=== PATIENT | female | born 1995 | race Caucasian/White ===

== ENCOUNTER → 2017-07-28 | Outpatient (CLI) | payer SELFPAY ==
--- NOTE | 2017-07-28 15:56 | RAD ---
Exam performed: 3 views right knee. Clinical indication: Right knee pain for one week, no recent injury Date of Service: 07/28/17 Comparison:None available Findings: AP, oblique and lateral radiographs of the knee reveal the osseous structures to be intact and well aligned. The joint space is well-preserved. The articular margins are smooth. Evidence of calcific loose body or joint effusion is absent. Impression: Radiographically normal knee.
== END | disposition home or self-care (01) ==
LOC: DXRADRC 15:10
PROVIDERS: ATTEND Physician Assistant Medical
DX: M25.561 Pain in right knee (principal)
CPT/HCPCS: 73562

== ENCOUNTER 2017-11-29 21:03 | Emergency (ER) | payer OTHER ==
[~2017-11-29] VITALS: Ht 160 cm; Wt 79.4 kg
[2017-11-29] MEDS ORDERED: KETOROLAC 60 MG/2 ML VIAL. IM ONE (21:30)
[2017-11-29] MEDS ORDERED: HYDROmorphone PF 1 MG/ML DISP.SYRIN IM ONE ×2 (21:30→23:00)
--- NOTE | 2017-11-29 21:32 | PHYS DOC ---
Past History Past Medical History: No Pertinent History Past Surgical History: Tonsillectomy Additional Past Surgical Histo: left wrist surgery Smoking: Non-smoker Alcohol Use: Occasionally Drug Use: None Adult General Chief Complaint Chief Complaint: BACK INJURY HPI HPI This patient is an otherwise healthy 22-year-old female who was bowling tonight with her family and she dropped her body and a possible awkward position causing some discomfort in her mid and lower back. She denies any bowel or bladder incontinence, denies any recent URI symptoms, denies any recent UTI symptoms, denies any nausea, vomiting, diarrhea, night sweats or weight loss that's not been intentional. She denies any direct trauma to her back prior history of the same. She did mention she had possibly UTI symptoms for 5 days ago the dose of symptoms have told. Her pain is 8 of 10 is worse with range of motion and movement and direct pressure over the back. She denies any numbness to her lower legs or weakness in her legs. She is not taking anything for her symptoms as she came here directly from the [facility] she normal intervals once weekly family and a noncompressible Review of Systems Review of Systems Constitutional: Denies fever or chills [] Eyes: Denies change in visual acuity, redness, or eye pain [] HENT: Denies nasal congestion or sore throat [] Respiratory: Denies cough or shortness of breath [] Cardiovascular: No additional information not addressed in HPI [] GI: Denies abdominal pain, nausea, vomiting, bloody stools or diarrhea [] : Patient did has some dysuria urgency and frequency for 5 days ago Musculoskeletal: Her main complaint is lower back pain without specific weakness or joint pain Integument: Denies rash or skin lesions [] Neurologic: Denies headache, focal weakness or sensory changes [] Endocrine: Denies polyuria or polydipsia [] All other systems were reviewed and found to be within normal limits, except as documented in this note. Current Medications Current Medications Current Medications Medications (Trade) Dose Ordered Sig/Madelin Start Time Stop Time Status Last Admin Dose Admin Diazepam (Valium) 5 mg 1X ONCE 11/29/17 21:30 11/29/17 21:31 UNV Hydromorphone HCl (Dilaudid) 1 mg 1X ONCE 11/29/17 21:30 11/29/17 21:31 UNV Ketorolac Tromethamine (Toradol) 60 mg 1X ONCE 11/29/17 21:30 11/29/17 21:31 UNV Allergies Allergies Allergies Coded Allergies Type Severity Reaction Last Updated Verified No Known Drug Allergies 11/29/17 No Physical Exam Physical Exam Constitutional: Well developed, well nourished, no acute distress, non-toxic appearance. [] Cardiovascular:Heart rate regular rhythm, no murmur [] Lungs & Thorax: Bilateral breath sounds clear to auscultation [] Skin: Warm, dry, no erythema, no rash. [] Back: She has tenderness to palpation over the rhomboid major and minor as well as erector spinae muscles in the T-spine and L-spine with no midline tenderness to palpation. Extremities: No tenderness, no cyanosis, no clubbing, ROM intact, no edema. [] Neurologic: Alert and oriented X 3, normal motor function, normal sensory function, no focal deficits noted. Patient has no saddle anesthesia normal gait no weakness in her lower legs.[] Psychologic: Affect normal, judgement normal, mood normal. [] EKG EKG [] Radiology/Procedures Radiology/Procedures [] Course & Med Decision Making Course & Med Decision Making Pertinent Labs and Imaging studies reviewed. (See chart for details) []She presents with sudden onset of back pain while bowling with no red flags to include night sweats, weight loss that's been unintentional, bowel or bladder continence, history of IV drug abuse or possible trauma to her back. Patient denies any UTI symptoms at this time Back pain differential CRAFTI Cauda Equina Renal Stone AAA ruptured Fracture Tumor (TB, metastatic disease) Infection UTI, pyelonephritis, epidural abscess. Patient's spine symptoms have stabilized while they have been evaluated in the department and are appropriate for outpatient work up. No evidence of cauda equina, cord compression, infiltrative, or infectious etiology. Patient produced a urine sample about 10 PM urine sample showed signs of considerable contamination with epithelial cells but also has signs of bacteria and white blood cells my concern is given her symptoms if I do not treat this may be a subclinical pyelonephritis which she would potentially get sicker if I do not treat her with empiric infarcts. Time is now 10:45 PM patient feels better although pain is not completely gone she is able to move more on the bed although she still cannot recall comfortable. The pain is not radiating or moving doubt any stone or aneurysm, doubt epidural abscess or other fracture. Patient had muscular skeletal pain on examination is reproduced on exam. No evidence of cauda equina on physical exam. Plan as to treat patient with NSAIDs, narcotics and a muscle relaxant. I will also supply her a course of antibiotics discharge: I've spoken with the patient and/or caregivers. I've explained the patient's condition, diagnosis and treatment plan based on information available to me at this time. I've answered the patient's and/or caregivers questions and addressed any concerns. The patient and/or caregivers have a good understanding the patient's diagnosis, condition and treatment plan as can be expected at this point. Vital signs have been stabilized. The patient's condition is stable for discharge from the emergency department. The patient will pursue further outpatient evaluation with her primary care provider or other designated consulting physician as outlined in the discharge instructions. Patient and/or caregivers are agreeable to this plan of care and follow-up instructions have been explained in detail. The patient and/or caregivers have received these instructions in written format and expressed understanding of these discharge instructions. The patient and her caregivers are aware that if any significant change in condition or worsening of symptoms should prompt him to immediately return to this of the closest emergency department. If an emergent department is not readily available I would encourage him to call 911. [place] Disclaimer Dragon Disclaimer This electronic medical record was generated, in whole or in part, using a voice recognition dictation system. Departure Departure: Disposition: 01 HOME, SELF-CARE Condition: IMPROVED Referrals: SHARI MATTHEW (PCP) Patient Instructions: Back Pain, Adult, Urinary Tract Infection Additional Instructions: discharge: I've spoken with the patient and/or caregivers. I've explained the patient's condition, diagnosis and treatment plan based on information available to me at this time. I've answered the patient's and/or caregivers questions and addressed any concerns. The patient and/or caregivers have a good understanding the patient's diagnosis, condition and treatment plan as can be expected at this point. Vital signs have been stabilized. The patient's condition is stable for discharge from the emergency department. The patient will pursue further outpatient evaluation with her primary care provider or other designated consulting physician as outlined in the discharge instructions. Patient and/or caregivers are agreeable to this plan of care and follow-up instructions have been explained in detail. The patient and/or caregivers have received these instructions in written format and expressed understanding of these discharge instructions. The patient and her caregivers are aware that if any significant change in condition or worsening of symptoms should prompt him to immediately return to this of the closest emergency department. If an emergent department is not readily available I would encourage him to call 911. Scripts Diazepam (VALIUM) 5 Mg Tablet 5 MG PO TID for MUSCLE SPASMS for 5 Days, #15 TAB Please use one tablet every 8 hours as needed for muscle spasms. Do not drink alcohol or use other narcotics with this medication. Prov: JORGE L HERRERA MD 11/29/17 Naproxen (NAPROSYN) 500 Mg Tablet 1 TAB PO BID, #20 TAB 1 Refill Prov: JORGE L HERRERA MD 11/29/17 Ciprofloxacin Hcl (CIPROFLOXACIN HCL) 500 Mg Tablet 1 TAB PO BID, #10 TAB Prov: JORGE L HRERERA MD 11/29/17 Hydrocodone Bit/Acetaminophen (HYDROCODONE-APAP 5-325 ) 1 Each Tablet 1 TAB PO PRN Q6HRS Y for PAIN for 5 Days, #12 TAB 0 Refills Prov: JORGE L HERRERA MD 11/29/17 JORGE L HERRERA MD Nov 29, 2017 21:32
[2017-11-29] MEDS ORDERED: diazePAM 5 MG TABLET ONE (22:14)
[2017-11-29] MEDS ORDERED: diazePAM 5 MG TABLET PO ONE (22:30)
[2017-11-29 22:34] LABS: BACTERIA,URINE MOD /HPF (0-FEW); BILIRUBIN,URINE NEG (NEG); CLARITY,URINE HAZY; COLOR,URINE YELLOW; GLUCOSE,URINE NEG (NEG); NITRITE,URINE NEG (NEG); SQUAMOUS EPITHELIAL CELL,UR MANY /LPF; UROBILINOGEN,URINE 0.2 mg/dL (0.2 mg/dL)
[2017-11-29] MEDS ORDERED: NAPR-683 PO (23:02)
[2017-11-29] MEDS ORDERED: HYDR-2758 PO (23:02)
[2017-11-29] MEDS ORDERED: DIAZ5TAB PO (23:02)
[2017-11-29] MEDS ORDERED: CIPR500T PO (23:02)
[2017-11-29] MEDS ORDERED: CIPROFLOXACIN HCL 500 MG TABLET PO ONE (23:15)
[2017-11-29] MEDS ORDERED: CIPROFLOXACIN HCL 500 MG TABLET ONE (23:16)
[2017-11-29] MEDS ORDERED: ONDANSETRON 4MG ODT 4TABLET STARTPACK. PO ONE ×2 (23:19→23:30)
[2017-11-29 23:20] VITALS: BP 136/83
== END 2017-11-29 23:21 | disposition home or self-care (01) ==
LOC: ER 21:03
DX: M54.5 Low back pain (principal); R30.0 Dysuria
CPT/HCPCS: 81001; 81025; 87086; 96372; 99284; J1170; J1885; Q0162

== ENCOUNTER 2018-05-16 22:57 | Emergency (ER) | payer BC, OTHER ==
[~2018-05-16] VITALS: Ht 160 cm; Wt 88.2 kg
[~2018-05-16 22:57] MED LIST: CIPR500T PO; DIAZ5TAB PO; HYDR-2758 PO; NAPR-683 PO
[2018-05-16 23:05] VITALS: BP 136/83
--- NOTE | 2018-05-16 23:07 | ED.ADGEN ---
Past History Past Medical History: No Pertinent History Past Surgical History: Tonsillectomy Additional Past Surgical Histo: left wrist surgery Smoking: Non-smoker Alcohol Use: Occasionally Drug Use: None Adult General Chief Complaint Chief Complaint ".. I got this toe problem.. I had surgery on my big toes.. by Dr Dela Cruz.. and now they look like they are infected..". I been doing much Epson salt soaks" HPI HPI Patient is a 23 year old female who presents with above hx and complaints of bilateral collateral first toe nail reduction earlier this week. Patient noticed toes become swollen and has purulent drainage from edges surgery occurred. Patient denies any specific ill contacts. Patient denies any travel. Patient denies any history of immunosuppression. Patient does not remember last tetanus shot. Patient is normally healthy. Patient normally follows with Dr. Polanco Review of Systems Review of Systems Constitutional: Denies fever or chills [] Eyes: Denies change in visual acuity, redness, or eye pain [] HENT: Denies nasal congestion or sore throat [] Respiratory: Denies cough or shortness of breath [] Cardiovascular: No additional information not addressed in HPI [] GI: Denies abdominal pain, nausea, vomiting, bloody stools or diarrhea [] : Denies dysuria or hematuria [] Musculoskeletal: Denies back pain or joint pain []plaints of bilateral first toe infections Integument: Denies rash or skin lesions [] Neurologic: Denies headache, focal weakness or sensory changes [] Endocrine: Denies polyuria or polydipsia [] All other systems were reviewed and found to be within normal limits, except as documented in this note. Current Medications Current Medications Current Medications Medications (Trade) Dose Ordered Sig/Madelin Start Time Stop Time Status Last Admin Dose Admin Hydrocodone Bitartrate/ Ibuprofen (Vicoprofen 7.5-200) 1 tab 1X ONCE 05/16/18 23:30 05/16/18 23:46 DC 05/16/18 23:29 1 TAB Tetanus/ Diphtheria Toxoids Adsorbed (Tenivac Vial) 0.5 ml ONCE ONCE 05/16/18 23:30 05/16/18 23:46 DC 05/16/18 23:31 0.5 ML Trimethoprim/ Sulfamethoxazole (Bactrim Ds) 1 tab 1X ONCE 05/16/18 23:30 05/16/18 23:46 DC 05/16/18 23:29 1 TAB Allergies Allergies Allergies Coded Allergies Type Severity Reaction Last Updated Verified No Known Drug Allergies 05/16/18 No Physical Exam Physical Exam Constitutional: Well developed, well nourished, no acute distress, non-toxic appearance. [] HENT: Normocephalic, atraumatic, bilateral external ears normal, oropharynx moist, no oral exudates, nose normal. [] Eyes: PERRLA, EOMI, conjunctiva normal, no discharge. [] Neck: Normal range of motion, no tenderness, supple, no stridor. [] Cardiovascular:Heart rate regular rhythm, no murmur [] Lungs & Thorax: Bilateral breath sounds clear to auscultation [] Abdomen: Bowel sounds normal, soft, no tenderness, no masses, no pulsatile masses. [] Skin: Warm, dry, no erythema, no rash. [] Back: No tenderness, no CVA tenderness. [] Extremities: No tenderness, no cyanosis, no clubbing, ROM intact, no edema. [] Neurologic: Alert and oriented X 3, normal motor function, normal sensory function, no focal deficits noted. [] Psychologic: Affect normal, judgement normal, mood normal. [] Current Patient Data Vital Signs Vital Signs Date Time Temp Pulse Resp B/P (MAP) Pulse Ox O2 Delivery O2 Flow Rate FiO2 05/16/18 23:05 98.7 83 20 98 Room Air EKG EKG [] Radiology/Procedures Radiology/Procedures [] Course & Med Decision Making Course & Med Decision Making Pertinent Labs and Imaging studies reviewed. (See chart for details) Patient to continue salt soaks. Patient take Bactrim DS twice a day. 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 Patient return if any concerns. Take Tylenol and ibuprofen for pain. Wear White cotton Socks . [] Final Impression Final Impression 1. Bilateral first toe cellulitis[] Dragon Disclaimer Dragon Disclaimer This electronic medical record was generated, in whole or in part, using a voice recognition dictation system. ELA ROBERSON MD May 16, 2018 23:07
[2018-05-16] MEDS ORDERED: SULF1TAB24 PO (23:22)
[2018-05-16] MEDS: HYDROcodon/IBUPROFEN 7.5/200MG 1 TAB TABLET PO ONE (23:29)
[2018-05-16] MEDS: SMZ/TMP 800/160MG TABLET. PO ONE (23:29)
[2018-05-16] MEDS: TETANUS AND DIPHTHERIA TOX/PF 0.5 ML VIAL. VAX IM ONE (23:31)
== END 2018-05-16 23:47 | disposition home or self-care (01) ==
LOC: ER 22:57
DX: L03.032 Cellulitis of left toe (principal); L03.031 Cellulitis of right toe
CPT/HCPCS: 90471; 90714; 99284-25

== ENCOUNTER → 2018-07-17 | Outpatient (CLI) | payer BC ==
[~2018-07-17] MED LIST changes: +SULF1TAB24 PO
--- NOTE | 2018-07-17 17:50 | RAD ---
EXAM: AP, lateral and LS spot views of the lumbar spine DATE: 07/17/2018 10:25 AM INDICATION: LOW BACK PAIN COMPARISON: No Prior FINDINGS: There are 5 nonrib-bearing lumbar-type vertebral bodies. Vertebral body heights are preserved. Intervertebral disc heights are grossly preserved. Straightening of the normal lumbar lordosis. No significant spondylolisthesis. IMPRESSION: No evidence for acute fracture or subluxation. Electronically signed by: Curtis Sotelo MD (07/17/2018 5:46 PM) [facility]
== END | disposition home or self-care (01) ==
LOC: PMG 10:17
PROVIDERS: ATTEND Physician Assistant Medical
DX: M40.46 Postural lordosis, lumbar region (principal)
CPT/HCPCS: 72100

== ENCOUNTER 2018-08-16 20:41 | Emergency (ER) | payer BC ==
[~2018-08-16] VITALS: Ht 160 cm; Wt 83.9 kg
[2018-08-16 20:50] VITALS: BP 130/80
--- NOTE | 2018-08-16 20:57 | ED.ADGEN ---
Past History Past Medical History: No Pertinent History, Other Past Surgical History: Tonsillectomy, Other Additional Past Surgical Histo: left wrist surgery Smoking: Non-smoker Alcohol Use: Occasionally Drug Use: None Adult General Chief Complaint Chief Complaint ". I ve been having abd. pain or discomfort all week.. it just gotten much worse tonight... " HPI HPI Patient is a 23 year old female who presents with above hx and complaints abd. pain, nausea, distention. Patient rates her epigastric and right upper quadrant pain as 9 out of 10 currently. Patient denies any history of bad food. Patient denies any history of specific ill contacts. Patient denies any travel. Patient denies any trauma. Patient denies any tarry stools. Patient localizes pain primarily in right upper quadrant. There is rebound to right upper quadrant. There is no psoas or obturator sign. Patient denies any history of immunosuppression. Patient states symptoms seem to exacerbate after high-fat meal. Patient normally follows with Dr. Orantes. patient patient does relate there is strong family history of gallbladder disease requiring surgery at her age and her family. Review of Systems Review of Systems Constitutional: Denies fever or chills [] Eyes: Denies change in visual acuity, redness, or eye pain [] HENT: Denies nasal congestion or sore throat [] Respiratory: Denies cough or shortness of breath [] Cardiovascular: No additional information not addressed in HPI [] GI: Complaints of epigastric and right upper quadrant abdominal pain, nausea, . Denies vomiting, bloody stools or diarrhea [] : Denies dysuria or hematuria [] Musculoskeletal: Denies back pain or joint pain [] Integument: Denies rash or skin lesions [] Neurologic: Denies headache, focal weakness or sensory changes [] Endocrine: Denies polyuria or polydipsia [] All other systems were reviewed and found to be within normal limits, except as documented in this note. Family History Family History Family members require gallbladder surgery in their 20s Current Medications Current Medications Current Medications Medications (Trade) Dose Ordered Sig/Madelin Start Time Stop Time Status Last Admin Dose Admin Ceftriaxone Sodium 1 gm/ Sodium Chloride 50 ml @ 100 mls/hr 1X ONCE 08/17/18 00:00 08/17/18 00:29 DC 08/17/18 01:00 100 MLS/HR Ceftriaxone Sodium (Rocephin) 1 gm K-MED ONCE 08/17/18 00:13 08/17/18 00:14 DC Famotidine (Pepcid Vial) 20 mg 1X ONCE 08/16/18 21:30 08/16/18 21:31 DC 08/16/18 22:41 20 MG Info (Do NOT chart on this entry -- for MONITORING) 1 each PRN DAILY PRN 08/16/18 21:45 08/17/18 01:55 DC Iohexol (Omnipaque 240 Mg/ml) 30 ml 1X ONCE 08/16/18 22:00 08/16/18 22:01 DC 08/16/18 22:44 30 ML Iohexol (Omnipaque 300 Mg/ml) 75 ml 1X ONCE 08/16/18 22:00 08/16/18 22:01 DC 08/16/18 22:44 75 ML Lactated Ringer's 1,000 ml @ 1,000 mls/hr Q1H 08/16/18 21:30 08/16/18 22:29 DC 08/16/18 22:35 1,000 MLS/HR Magnesium Hydroxide (Milk Of Magnesia) 2,400 mg 1X ONCE 08/16/18 21:30 08/16/18 21:31 DC 08/16/18 22:37 2,400 MG Metronidazole 100 ml @ 100 mls/hr 1X ONCE 08/17/18 00:00 08/17/18 00:59 DC 08/17/18 00:27 100 MLS/HR Ondansetron HCl (Zofran) 8 mg 1X ONCE 08/16/18 21:30 08/16/18 21:31 DC 08/16/18 22:38 8 MG Sodium Chloride 50 ml @ As Directed STK-MED ONCE 08/17/18 00:13 08/17/18 00:14 DC Allergies Allergies Allergies Coded Allergies Type Severity Reaction Last Updated Verified No Known Drug Allergies 05/16/18 No Physical Exam Physical Exam Constitutional: Moderately acute distress, non-toxic appearance. [] HENT: Normocephalic, atraumatic, bilateral external ears normal, oropharynx moist, no oral exudates, nose normal. [] Eyes: PERRLA, EOMI, conjunctiva normal, no discharge. [] Neck: Normal range of motion, no tenderness, supple, no stridor. [] Cardiovascular:Heart rate regular rhythm, no murmur [] Lungs & Thorax: Bilateral breath sounds equal apex on auscultation [] Abdomen: Bowel sounds hyperactive,, soft, right upper quadrant tenderness, no masses, no pulsatile masses. Rebound to right upper quadrant. Patient declines rectal vaginal exam this time. Obese Skin: Warm, dry, no erythema, no rash. [] Back: No tenderness, no CVA tenderness. [] Extremities: No tenderness, no cyanosis, no clubbing, ROM intact, no edema. [No psoas or obturator sign.] Old Lt wrist scar. Neurologic: Alert and oriented X 3, normal motor function, normal sensory function, no focal deficits noted. [] Psychologic: Affect anxious, judgement normal, mood normal. [] Current Patient Data Vital Signs Vital Signs Date Time Temp Pulse Resp B/P (MAP) Pulse Ox O2 Delivery O2 Flow Rate FiO2 08/16/18 20:50 98.6 94 16 97 Room Air Lab Results Laboratory Tests Test 08/16/18 20:47 08/16/18 21:33 08/16/18 22:00 08/16/18 23:42 POC Urine HCG, Qualitative hcg negative (Negative) Urine Collection Type Unknown Urine Color Yellow Urine Clarity Hazy Urine pH 6.0 Urine Specific [place] >=1.030 Urine Protein Neg (NEG-TRACE) Urine Glucose (UA) Neg mg/dL (NEG) Urine Ketones (Stick) Trace mg/dL (NEG) Urine Blood Mod (NEG) Urine Nitrite Neg (NEG) Urine Bilirubin Neg (NEG) Urine Urobilinogen Dipstick 0.2 mg/dL (0.2 mg/dL) Urine Leukocyte Esterase Small (NEG) Urine RBC 1-2 /HPF (0-2) Urine WBC 5-10 /HPF (0-4) Urine Squamous Epithelial Cells Mod /LPF Urine Bacteria Few /HPF (0-FEW) Urine Mucus Slight /LPF Urine Opiates Screen Neg (NEG) Urine Methadone Screen Neg (NEG) Urine Barbiturates Neg (NEG) Urine Phencyclidine Screen Neg (NEG) Urine Amphetamine/Methamphetamine Neg (NEG) Urine Benzodiazepines Screen Neg (NEG) Urine Cocaine Screen Neg (NEG) Urine Cannabinoids Screen Neg (NEG) Urine Ethyl Alcohol Neg (NEG) White Blood Count 11.7 x10^3/uL (4.0-11.0) H Red Blood Count 5.03 x10^6/uL (3.50-5.40) Hemoglobin 15.0 g/dL (12.0-15.5) Hematocrit 43.8 % (36.0-47.0) Mean Corpuscular Volume 87 fL (79-100) Mean Corpuscular Hemoglobin 30 pg (25-35) Mean Corpuscular Hemoglobin Concent 34 g/dL (31-37) Red Cell Distribution Width 12.5 % (11.5-14.5) Platelet Count 337 x10^3/uL (140-400) Neutrophils (%) (Auto) 57 % (31-73) Lymphocytes (%) (Auto) 34 % (24-48) Monocytes (%) (Auto) 8 % (0-9) Eosinophils (%) (Auto) 1 % (0-3) Basophils (%) (Auto) 1 % (0-3) Neutrophils # (Auto) 6.6 x10^3uL (1.8-7.7) Lymphocytes # (Auto) 4.0 x10^3/uL (1.0-4.8) Monocytes # (Auto) 0.9 x10^3/uL (0.0-1.1) Eosinophils # (Auto) 0.1 x10^3/uL (0.0-0.7) Basophils # (Auto) 0.1 x10^3/uL (0.0-0.2) Prothrombin Time 12.7 SEC (9.4-11.4) H Prothrombin Time INR 1.3 (0.9-1.1) H PTT 30 SEC (23-33) Sodium Level 142 mmol/L (136-145) Potassium Level 3.4 mmol/L (3.5-5.1) L Chloride Level 106 mmol/L (98-107) Carbon Dioxide Level 26 mmol/L (21-32) Anion Gap 10 (6-14) Blood Urea Nitrogen 16 mg/dL (7-20) Creatinine 0.8 mg/dL (0.6-1.0) Estimated GFR (Cockcroft-Gault) 87.4 Glucose Level 82 mg/dL (70-99) Calcium Level 8.7 mg/dL (8.5-10.1) Total Bilirubin 0.6 mg/dL (0.2-1.0) Direct Bilirubin 0.2 mg/dL (0.0-0.2) Aspartate Amino Transferase (AST) 14 U/L (15-37) L Alanine Aminotransferase (ALT) 25 U/L (14-59) Alkaline Phosphatase 60 U/L (46-116) Troponin I Quantitative < 0.017 ng/mL (0-0.055) Total Protein 6.8 g/dL (6.4-8.2) Albumin 3.8 g/dL (3.4-5.0) Amylase Level 50 U/L (25-115) Lipase 116 U/L (73-393) EKG EKG [] Radiology/Procedures Radiology/Procedures My interpretation of acute abdomen film shows no acute pulmonary findings. No free air in the diaphragm. Nonspecific bowel gas pattern.[] CT of abdomen shows no acute surgical findings. Course & Med Decision Making Course & Med Decision Making Pertinent Labs and Imaging studies reviewed. (See chart for details). Patient remain on a clear fluid diet only for the next 48 hours. No solids or milk products. Must allow bowel rest. Takes Zantac 150 mg twice day. Follow up urine cultures. Follow-up primary care. Get out patient workup for biliary colic. Avoid high fat meals. If any exacerbation of pain will need reexam. Avoid NSAIDs. Repeat UA check on follow up with Rolanda. [] Final Impression Final Impression 1. Abdomen pain 2. Biliary colic 3. Gastritis[] Dragon Disclaimer Dragon Disclaimer This electronic medical record was generated, in whole or in part, using a voice recognition dictation system. ELA ROBERSON MD Aug 16, 2018 20:57
[2018-08-16] MEDS ORDERED: FAMOTIDINE 20 MG/2 ML VIAL IVP ONE (21:30)
[2018-08-16] MEDS ORDERED: MAGNESIUM HYDROXIDE 2,400 MG/30 ML ORAL.SUSP. PO ONE (21:30)
[2018-08-16] MEDS ORDERED: ONDANSETRON PF 4 MG/2 ML VIAL. IV ONE (21:30)
[2018-08-16] MEDS ORDERED: IV RINGERS SOLUTION,LACTATED 1,000 ML IV SCH (21:30)
--- NOTE | 2018-08-16 21:33 | EKG ---
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
[2018-08-16] MEDS ORDERED: CONTRAST GIVEN MC PRN (21:45)
[2018-08-16] MEDS ORDERED: IOHEXOL 300 MG/ML 75 ML VIAL. IV ONE (22:00)
[2018-08-16] MEDS ORDERED: IOHEXOL 240 MG/ML 50ML VIAL. PO ONE (22:00)
[2018-08-16 22:04] LABS: BACTERIA,URINE FEW /HPF (0-FEW); BILIRUBIN,URINE NEG (NEG); CLARITY,URINE HAZY; COLOR,URINE YELLOW; GLUCOSE,URINE NEG (NEG); NITRITE,URINE NEG (NEG); SQUAMOUS EPITHELIAL CELL,UR MOD /LPF; UROBILINOGEN,URINE 0.2 mg/dL (0.2 mg/dL)
[2018-08-16 22:07] LABS: AMPHETAMINE/METHAMPHETAMINE NEG (NEG); BARBITURATES NEG (NEG); BENZODIAZEPINES NEG (NEG); CANNABINOIDS NEG (NEG); COCAINE NEG (NEG); METHADONE NEG (NEG); OPIATES NEG (NEG); PHENCYCLIDINE NEG (NEG)
[2018-08-16 22:17] LABS: BASO # 0.1 x10^3/uL (0.0-0.2); BASO % 1 % (0-3); EOS # 0.1 x10^3/uL (0.0-0.7); EOS % 1 % (0-3); HEMATOCRIT 43.8 % (36.0-47.0); LYMPH % 34 % (24-48); MEAN CORPUSCULAR HEMOGLOBIN 30 pg (25-35); MEAN CORPUSCULAR HGB CONC 34 g/dL (31-37); MEAN CORPUSCULAR VOLUME 87 fL (79-100); MONO # 0.9 x10^3/uL (0.0-1.1); MONO % 8 % (0-9); NEUT # 6.6 x10^3uL (1.8-7.7); NEUT % 57 % (31-73); PLATELET COUNT 337 x10^3/uL (140-400); RED BLOOD COUNT 5.03 x10^6/uL (3.50-5.40); RED CELL DISTRIBUTION WIDTH 12.5 % (11.5-14.5); WHITE BLOOD COUNT 11.7 x10^3/uL (4.0-11.0)
--- NOTE | 2018-08-16 23:21 | RAD ---
Examination: CT of the abdomen pelvis with IV contrast HISTORY: History of abdominal pain, loss of appetite, nausea, vomiting COMPARISON: None available TECHNIQUE: Axial CT images of the abdomen pelvis were performed with IV and oral contrast. Coronal and sagittal reformats performed Exposure: One or more of the following individualized dose reduction techniques were utilized for this examination: 1. Automated exposure control 2. Adjustment of the mA and/or kV according to patient size 3. Use of iterative reconstruction technique FINDINGS: The visualized bibasilar lungs are clear. No evidence of free air identified in the abdomen. The visualized liver, spleen, adrenals grossly appears unremarkable. The gallbladder is mildly distended. The stomach is mildly distended. The visualized pancreas grossly appears unremarkable. The small bowel is nondilated. Appendix is normal. Feces and gas noted in the colon. Urinary bladder is mildly distended. Bilateral ovarian follicles identified. No significant free fluid identified in the pelvis. The bilateral kidneys enhance symmetrically. The caliber of the aorta grossly appears unremarkable. No evidence of lytic bony destructive lesion. IMPRESSION: No acute intra-abdominal findings. Electronically signed by: Torito Champion MD (08/16/2018 11:18 PM) [facility]
[2018-08-17 00:09] LABS: ALBUMIN 3.8 g/dL (3.4-5.0); CALCIUM 8.7 mg/dL (8.5-10.1); CREATININE 0.8 mg/dL (0.6-1.0); DIRECT BILIRUBIN 0.2 mg/dL (0.0-0.2); GFR 87.4; POTASSIUM 3.4 mmol/L (3.5-5.1); TOTAL BILIRUBIN 0.6 mg/dL (0.2-1.0); TOTAL PROTEIN 6.8 g/dL (6.4-8.2)
[2018-08-17] MEDS ORDERED: cefTRIAXone SODIUM 1 GM VIAL IV ONE (00:13)
[2018-08-17] MEDS ORDERED: IV NORMAL SALINE 50ML 50 ML ONE (00:13)
[2018-08-17] MEDS ORDERED: ONDA8TAB12 PO (00:17)
[2018-08-17] MEDS ORDERED: CEPH-264 PO (00:17)
[2018-08-17] MEDS ORDERED: RANI150T21 PO (00:17)
--- NOTE | 2018-08-17 02:33 | RAD ---
EXAM: ABDOMEN 2 VIEWS WITH PA CHEST History: Abdominal pain TECHNIQUE: An upright view the chest and upright and supine views of the abdomen COMPARISON: None available. FINDINGS: There is no subdiaphragmatic free air. There is no bowel dilatation or evidence of obstruction. There are no abnormal calcifications. IMPRESSION: No acute abnormality identified. Electronically signed by: Torito Champion MD (08/17/2018 2:30 AM) [facility]
== END 2018-08-17 01:50 | disposition home or self-care (01) ==
LOC: ER 20:41
DX: K29.70 Gastritis, unspecified, without bleeding (principal); K80.50 Calculus of bile duct without cholangitis or cholecystitis without obstruction
CPT/HCPCS: 36415; 74022; 74177; 80048; 80076; 80307; 81001; 81025; 82150; 83690; 84484; 85025; 85610; 85730; 93005; 96361; 96365; 96368; 96375; 99285; J0696; J2405; J3490; J7120; Q9966; Q9967; S0028; 87086; G0479

== ENCOUNTER 2018-12-10 11:29 | Emergency (ER) | payer BC ==
[~2018-12-10] VITALS: Ht 157.5 cm; Wt 89.8 kg
[~2018-12-10 11:29] MED LIST changes: +CEPH-264 PO; +HYDR-2155 PO; -HYDR-2758 PO; +ONDA8TAB12 PO; +RANI150T21 PO
[2018-12-10] MEDS ORDERED: ASPIRIN 81 MG TAB.CHEW PO ONE (11:45)
--- NOTE | 2018-12-10 12:05 | RAD ---
EXAM: CHEST 1 VIEW History: Chest pain COMPARISON: 08/16/2018 TECHNIQUE: Single portable radiograph of the chest FINDINGS: The cardiac silhouette is unremarkable. The lungs are clear bilaterally. The costophrenic sulci are clear and well demarcated. IMPRESSION: No radiographic evidence of an acute cardiopulmonary process. Electronically signed by: Torito Champion MD (12/10/2018 12:01 PM) [id number]
[2018-12-10 12:19] LABS: BASO % 1 % (0-3); EOS # 0.1 x10^3/uL (0.0-0.7); EOS % 2 % (0-3); HEMATOCRIT 45.2 % (36.0-47.0); HEMOGLOBIN 15.6 g/dL (12.0-15.5); LYMPH % 27 % (24-48); MEAN CORPUSCULAR HEMOGLOBIN 30 pg (25-35); MEAN CORPUSCULAR HGB CONC 34 g/dL (31-37); MEAN CORPUSCULAR VOLUME 87 fL (79-100); MONO # 0.5 x10^3/uL (0.0-1.1); MONO % 7 % (0-9); NEUT # 4.6 x10^3uL (1.8-7.7); NEUT % 63 % (31-73); PLATELET COUNT 285 x10^3/uL (140-400); RED BLOOD COUNT 5.22 x10^6/uL (3.50-5.40); WHITE BLOOD COUNT 7.3 x10^3/uL (4.0-11.0)
--- NOTE | 2018-12-10 12:29 | PHYS DOC ---
Past History Past Medical History: No Pertinent History Past Surgical History: Tonsillectomy, Other Additional Past Surgical Histo: left wrist surgery Smoking: Non-smoker Alcohol Use: Occasionally Drug Use: None Adult General Chief Complaint Chief Complaint: CHEST WALL PAIN HPI HPI Patient is a 23 year old female who presents with chest pain. It started this morning while she was at work. No relief with measures taken at work. Worse with deep breaths. Patient denies any cough or congestion. Should she does have 2 children at home who have been sick recently, and recently diagnosed with your infections in both of them. Patient denies any ear pain. Denies any cough. Patient's most recent surgery was in August 2018 for gallbladder. Patient denies any unilateral leg swelling. [] Review of Systems Review of Systems Constitutional: Denies fever or chills [] Eyes: Denies change in visual acuity, redness, or eye pain [] HENT: Denies nasal congestion or sore throat [] Respiratory: Denies cough or shortness of breath [] Cardiovascular: No additional information not addressed in HPI [] GI: Denies abdominal pain, nausea, vomiting, bloody stools or diarrhea [] : Denies dysuria or hematuria [] Musculoskeletal: Denies back pain or joint pain [] Integument: Denies rash or skin lesions [] Neurologic: Denies headache, focal weakness or sensory changes [] Endocrine: Denies polyuria or polydipsia [] All other systems were reviewed and found to be within normal limits, except as documented in this note. Current Medications Current Medications Current Medications Medications (Trade) Dose Ordered Sig/Madelin Start Time Stop Time Status Last Admin Dose Admin Aspirin (Children'S Aspirin) 324 mg 1X ONCE 12/10/18 11:45 12/10/18 11:47 DC 12/10/18 12:11 324 MG Allergies Allergies Allergies Coded Allergies Type Severity Reaction Last Updated Verified No Known Drug Allergies 05/16/18 No Physical Exam Physical Exam Constitutional: Well developed, well nourished, no acute distress, non-toxic appearance. [] HENT: Normocephalic, atraumatic, bilateral external ears normal, oropharynx moist, no oral exudates, nose normal. [] Eyes: PERRLA, EOMI, conjunctiva normal, no discharge. [] Neck: Normal range of motion, no tenderness, supple, no stridor. [] Cardiovascular:Heart rate regular rhythm, no murmur [] Lungs & Thorax: Bilateral breath sounds clear to auscultation [] Abdomen: Bowel sounds normal, soft, no tenderness, no masses, no pulsatile masses. [] Skin: Warm, dry, no erythema, no rash. [] Back: No tenderness, no CVA tenderness. [] Extremities: No tenderness, no cyanosis, no clubbing, ROM intact, no edema. [] Neurologic: Alert and oriented X 3, normal motor function, normal sensory function, no focal deficits noted. [] Psychologic: Affect normal, judgement normal, mood normal. [] Current Patient Data Vital Signs Vital Signs Date Time Temp Pulse Resp B/P (MAP) Pulse Ox O2 Delivery O2 Flow Rate FiO2 12/10/18 11:30 100.1 83 18 96 Room Air Lab Results Laboratory Tests Test 12/10/18 12:00 White Blood Count 7.3 x10^3/uL (4.0-11.0) Red Blood Count 5.22 x10^6/uL (3.50-5.40) Hemoglobin 15.6 g/dL (12.0-15.5) H Hematocrit 45.2 % (36.0-47.0) Mean Corpuscular Volume 87 fL (79-100) Mean Corpuscular Hemoglobin 30 pg (25-35) Mean Corpuscular Hemoglobin Concent 34 g/dL (31-37) Red Cell Distribution Width 12.0 % (11.5-14.5) Platelet Count 285 x10^3/uL (140-400) Neutrophils (%) (Auto) 63 % (31-73) Lymphocytes (%) (Auto) 27 % (24-48) Monocytes (%) (Auto) 7 % (0-9) Eosinophils (%) (Auto) 2 % (0-3) Basophils (%) (Auto) 1 % (0-3) Neutrophils # (Auto) 4.6 x10^3uL (1.8-7.7) Lymphocytes # (Auto) 2.0 x10^3/uL (1.0-4.8) Monocytes # (Auto) 0.5 x10^3/uL (0.0-1.1) Eosinophils # (Auto) 0.1 x10^3/uL (0.0-0.7) Basophils # (Auto) 0.0 x10^3/uL (0.0-0.2) EKG EKG EKG shows a sinus rhythm at 73 bpm, normal axis, QTC of 389 ms, no ST elevations , no old EKG available for comparison.[] Radiology/Procedures Radiology/Procedures EXAM: CHEST 1 VIEW History: Chest pain COMPARISON: 08/16/2018 TECHNIQUE: Single portable radiograph of the chest FINDINGS: The cardiac silhouette is unremarkable. The lungs are clear bilaterally. The costophrenic sulci are clear and well demarcated. IMPRESSION: No radiographic evidence of an acute cardiopulmonary process. [] Course & Med Decision Making Course & Med Decision Making Pertinent Labs and Imaging studies reviewed. (See chart for details) ED course: Patient arrived, was placed in bed, in tolerated exam well. After the return of the lab and imaging findings, these were shared with the patient who voiced understanding. All questions were answered. Patient was discharged in improved condition. Medical decision making: There is no evidence of an acute coronary syndrome, no pneumonia, no pneumothorax, no pulmonary embolism, no dissecting thoracic aneurysm, no esophageal dissection.[] Dragon Disclaimer Dragon Disclaimer This electronic medical record was generated, in whole or in part, using a voice recognition dictation system. Departure Departure: Impression: Primary Impression: Chest pain Disposition: 01 HOME, SELF-CARE Referrals: TRIPP DOWNING MD (PCP) Follow-up in 2 days Patient Instructions: Chest Pain (Nonspecific) Additional Instructions: Follow-up with your regular doctor. Return to the ER if worsening chest discomfort or any other concerns. Scripts Meloxicam (MELOXICAM) 7.5 Mg Tablet 7.5 MG PO DAILY for PAIN, #20 TAB Prov: SUKH CARRILLO DO 12/10/18 Problem Qualifiers Primary Impression: Chest pain Chest pain type: unspecified Qualified Codes: R07.9 - Chest pain, unspecified SUKH CARRILLO DO Dec 10, 2018 12:29
[2018-12-10 12:33] LABS: ALBUMIN 4.1 g/dL (3.4-5.0); ALBUMIN/GLOBULIN RATIO 1.2 (1.0-1.7); CALCIUM 8.9 mg/dL (8.5-10.1); CREATININE 0.8 mg/dL (0.6-1.0); GFR 87.4; POTASSIUM 3.9 mmol/L (3.5-5.1); TOTAL BILIRUBIN 0.5 mg/dL (0.2-1.0); TOTAL PROTEIN 7.6 g/dL (6.4-8.2)
[2018-12-10 12:48] LABS: INFLUENZA A PATIENT NEGATIVE (NEGATIVE); INFLUENZA B PATIENT NEGATIVE (NEGATIVE)
[2018-12-10 12:58] VITALS: BP 133/81
[2018-12-10] MEDS ORDERED: MELO7.5T29 PO (13:01)
--- NOTE | 2018-12-10 17:31 | EKG ---
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
== END 2018-12-10 13:20 | disposition home or self-care (01) ==
LOC: ER 11:29
DX: R07.89 Other chest pain (principal)
CPT/HCPCS: 36415; 71045; 80053; 81025; 83880; 84484; 85025; 85379; 85610; 87804; 93005; 99284

== ENCOUNTER 2019-05-15 22:33 | Emergency (ER) | payer BC ==
[~2019-05-15] VITALS: Ht 157.5 cm; Wt 83.5 kg
[~2019-05-15 22:33] MED LIST changes: +MELO7.5T29 PO; +RANI-376 PO; -RANI150T21 PO
--- NOTE | 2019-05-15 22:35 | ED.ADGEN ---
Past History Past Medical History: No Pertinent History, Migraines, UTI Past Surgical History: Tonsillectomy, Other Additional Past Surgical Histo: left wrist surgery Smoking: Non-smoker Alcohol Use: Occasionally Drug Use: None Adult General Chief Complaint Chief Complaint ".. I ve had a headache for two days... now... dizzy feeling.. just feel off.. my headache here on my posterior scalp..." HPI HPI Patient is a 24 year old female who presents with above hx and complaints headache with dizziness x 2 days. Patient has had headaches in the past/migraines. No history of previous CT. No history of previous workup. Headaches are usually relieved with Tylenol or ibuprofen. Patient denies any travel. Patient denies any specific ill contacts. Patient denies any history immunosuppression. Patient denies any fever or chills. Patient denies any history of trauma. Patient normally healthy. Patient follows with Dr. Burtno. Pt has some increase job stressors. Review of Systems Review of Systems Constitutional: Denies fever or chills [] Eyes: Denies change in visual acuity, redness, or eye pain [] HENT: Denies nasal congestion or sore throat [] Respiratory: Denies cough or shortness of breath [] Cardiovascular: No additional information not addressed in HPI [] GI: Denies abdominal pain, nausea, vomiting, bloody stools or diarrhea [] : Denies dysuria or hematuria [] Musculoskeletal: Denies back pain or joint pain [] Integument: Denies rash or skin lesions [] Neurologic: Complains of headache, and dizziness. Patient denies focal weakness or sensory changes [] Endocrine: Denies polyuria or polydipsia [] All other systems were reviewed and found to be within normal limits, except as documented in this note. Family History Family History Noncontributory Current Medications Current Medications Current Medications Medications (Trade) Dose Ordered Sig/Madelin Start Time Stop Time Status Last Admin Dose Admin Diphenhydramine HCl (Benadryl) 50 mg 1X ONCE 05/15/19 23:15 05/15/19 23:16 DC 05/15/19 23:08 50 MG Lactated Ringer's 1,000 ml @ 1,000 mls/hr Q1H 05/15/19 23:00 05/15/19 23:59 DC 05/15/19 23:08 1,000 MLS/HR Ondansetron HCl (Zofran) 8 mg 1X ONCE 05/15/19 23:15 05/15/19 23:16 DC 05/15/19 23:08 8 MG Oxycodone/ Acetaminophen (Percocet 5/325) 2 tab 1X ONCE 05/15/19 23:15 05/15/19 23:16 DC 05/15/19 23:09 2 TAB Sumatriptan Succinate (Imitrex) 6 mg 1X ONCE 05/16/19 00:30 05/16/19 00:31 DC Trimethoprim/ Sulfamethoxazole (Bactrim Ds) 1 tab 1X ONCE 05/16/19 00:30 05/16/19 00:31 DC 05/16/19 00:29 1 TAB Allergies Allergies Allergies Coded Allergies Type Severity Reaction Last Updated Verified No Known Drug Allergies 05/16/18 No Physical Exam Physical Exam Constitutional: Well developed, well nourished, no acute distress, non-toxic appearance. [] HENT: Normocephalic, atraumatic, bilateral external ears normal, oropharynx moist, no oral exudates, nose normal. [] Eyes: PERRLA, EOMI, conjunctiva normal, no discharge. [] Neck: Normal range of motion, no tenderness, supple, no stridor. [] Cardiovascular:Heart rate regular rhythm, no murmur [] Lungs & Thorax: Bilateral breath sounds clear to auscultation [] Abdomen: Bowel sounds normal, soft, no tenderness, no masses, no pulsatile m asses. [] Skin: Warm, dry, no erythema, no rash. [] Back: No tenderness, no CVA tenderness. [] Extremities: No tenderness, no cyanosis, no clubbing, ROM intact, no edema. [] Neurologic: Alert and oriented X 3, normal motor function, normal sensory function, no focal deficits noted. []DTRs +2 patella and brachial. 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 Right-hand dominant. No drift. Ambulatory without problem. Scar Lt. wrist. Psychologic: Affect anxious, judgement normal, mood normal. [] Current Patient Data Vital Signs Vital Signs Date Time Temp Pulse Resp B/P (MAP) Pulse Ox O2 Delivery O2 Flow Rate FiO2 05/15/19 23:52 70 18 127/89 (102) 98 Room Air 05/15/19 22:50 98.6 Lab Results Laboratory Tests Test 05/15/19 22:40 05/15/19 22:50 05/15/19 23:00 Urine Collection Type Unknown Urine Color Yellow Urine Clarity Clear Urine pH 6.0 Urine Specific [place] >=1.030 Urine Protein Trace (NEG-TRACE) Urine Glucose (UA) Neg mg/dL (NEG) Urine Ketones (Stick) Neg mg/dL (NEG) Urine Blood Mod (NEG) Urine Nitrite Neg (NEG) Urine Bilirubin Neg (NEG) Urine Urobilinogen Dipstick 0.2 mg/dL (0.2 mg/dL) Urine Leukocyte Esterase Small (NEG) Urine RBC 11-20 /HPF (0-2) Urine WBC 11-20 /HPF (0-4) Urine Squamous Epithelial Cells Many /LPF Urine Bacteria Mod /HPF (0-FEW) Urine Mucus Mod /LPF Urine Opiates Screen Neg (NEG) Urine Methadone Screen Neg (NEG) Urine Barbiturates Neg (NEG) Urine Phencyclidine Screen Neg (NEG) Urine Amphetamine/Methamphetamine Pos (NEG) Urine Benzodiazepines Screen Neg (NEG) Urine Cocaine Screen Neg (NEG) Urine Cannabinoids Screen Neg (NEG) Urine Ethyl Alcohol Neg (NEG) POC Urine HCG, Qualitative hcg negative (Negative) White Blood Count 10.9 x10^3/uL (4.0-11.0) Red Blood Count 5.06 x10^6/uL (3.50-5.40) Hemoglobin 14.8 g/dL (12.0-15.5) Hematocrit 44.2 % (36.0-47.0) Mean Corpuscular Volume 87 fL (79-100) Mean Corpuscular Hemoglobin 29 pg (25-35) Mean Corpuscular Hemoglobin Concent 34 g/dL (31-37) Red Cell Distribution Width 12.7 % (11.5-14.5) Platelet Count 284 x10^3/uL (140-400) Neutrophils (%) (Auto) 56 % (31-73) Lymphocytes (%) (Auto) 36 % (24-48) Monocytes (%) (Auto) 6 % (0-9) Eosinophils (%) (Auto) 1 % (0-3) Basophils (%) (Auto) 0 % (0-3) Neutrophils # (Auto) 6.1 x10^3uL (1.8-7.7) Lymphocytes # (Auto) 4.0 x10^3/uL (1.0-4.8) Monocytes # (Auto) 0.7 x10^3/uL (0.0-1.1) Eosinophils # (Auto) 0.1 x10^3/uL (0.0-0.7) Basophils # (Auto) 0.0 x10^3/uL (0.0-0.2) Erythrocyte Sedimentation Rate 3 (0-25) Prothrombin Time 12.1 SEC (9.4-11.4) H Prothrombin Time INR 1.2 (0.9-1.1) H PTT 28 SEC (23-33) Sodium Level 141 mmol/L (136-145) Potassium Level 3.5 mmol/L (3.5-5.1) Chloride Level 107 mmol/L (98-107) Carbon Dioxide Level 25 mmol/L (21-32) Anion Gap 9 (6-14) Blood Urea Nitrogen 13 mg/dL (7-20) Creatinine 0.9 mg/dL (0.6-1.0) Estimated GFR (Cockcroft-Gault) 75.7 Glucose Level 86 mg/dL (70-99) Calcium Level 9.4 mg/dL (8.5-10.1) Magnesium Level 1.8 mg/dL (1.8-2.4) Total Bilirubin 0.3 mg/dL (0.2-1.0) Direct Bilirubin 0.1 mg/dL (0.0-0.2) Aspartate Amino Transferase (AST) 13 U/L (15-37) L Alanine Aminotransferase (ALT) 27 U/L (14-59) Alkaline Phosphatase 62 U/L (46-116) Total Protein 7.6 g/dL (6.4-8.2) Albumin 4.3 g/dL (3.4-5.0) EKG EKG My interpretation EKG shows a sinus rhythm at 70 bpm. Has nonspecific changes anterior septal changes. No findings acute STEMI.[] Radiology/Procedures Radiology/Procedures [][address] [address] IMAGING REPORT Signed PATIENT: SHEFALI ZHONG ACCOUNT: [id number] : 1995 LOCATION: ER AGE: 24 SEX: F EXAM STATUS: REG ER ORD. PHYSICIAN: ELA ROBERSON MD REASON: Headache x 3 days.Pt unable to remove earrings PROCEDURE: CT HEAD WO CONTRAST PQRS Compliance Statement: One or more of the following individualized dose reduction techniques were utilized for this examination: 1. Automated exposure control 2. Adjustment of the mA and/or kV according to patient size 3. Use of iterative reconstruction technique CT HEAD WITHOUT CONTRAST History: Headache x3 days. Comparison: None. Procedure: Axial images are obtained of the head from the skull base through the vertex without IV contrast. Findings: The ventricles and sulci are normal for the patient's age. No mass-effect, midline shift, hemorrhage, extra-axial fluid collection, or obvious acute infarction is identified. Basilar cisterns are patent. Bone windows demonstrate no acute calvarial abnormality. The visualized paranasal sinuses are clear. Mastoid air cells are well aerated. IMPRESSION: No acute intracranial abnormality. Electronically signed by: Jose Manuel Nance MD (05/16/2019 12:05 AM) [facility] Course & Med Decision Making Course & Med Decision Making Pertinent Labs and Imaging studies reviewed. (See chart for details) Pt. declines spinal tap, risks and benefits discussed. Exhibit UCAR capacity. Take tylenol and Ibuprofen for pain. Zofran for nausea and vomiting. Push F luids and fruit juices, vit. C drinks. Vicoprofen marked discomfort. Follow up with primary. Return if any concerns. [] Final Impression Final Impression 1. Headache- Migraine 2. Dizzy[] 3. UTI 4. Drug Screen + Meth/Amp Louis Disclaimer Louis Disclaimer This electronic medical record was generated, in whole or in part, using a voice recognition dictation system. Discharge Summary Visit Information Final Diagnosis Problems Medical Problems: (1) Headache Status: Acute (2) Urinary tract infection Status: Acute Brief Hospital Course Allergies Allergies Coded Allergies Type Severity Reaction Last Updated Verified No Known Drug Allergies 05/16/18 No Vital Signs Vital Signs Date Time Temp Pulse Resp B/P (MAP) Pulse Ox O2 Delivery O2 Flow Rate FiO2 05/15/19 23:52 70 18 127/89 (102) 98 Room Air 05/15/19 22:50 98.6 Lab Results Laboratory Tests Test 05/15/19 22:40 05/15/19 22:50 05/15/19 23:00 Urine Collection Type Unknown Urine Color Yellow Urine Clarity Clear Urine pH 6.0 Urine Specific [place] >=1.030 Urine Protein Trace (NEG-TRACE) Urine Glucose (UA) Neg mg/dL (NEG) Urine Ketones (Stick) Neg mg/dL (NEG) Urine Blood Mod (NEG) Urine Nitrite Neg (NEG) Urine Bilirubin Neg (NEG) Urine Urobilinogen Dipstick 0.2 mg/dL (0.2 mg/dL) Urine Leukocyte Esterase Small (NEG) Urine RBC 11-20 /HPF (0-2) Urine WBC 11-20 /HPF (0-4) Urine Squamous Epithelial Cells Many /LPF Urine Bacteria Mod /HPF (0-FEW) Urine Mucus Mod /LPF Urine Opiates Screen Neg (NEG) Urine Methadone Screen Neg (NEG) Urine Barbiturates Neg (NEG) Urine Phencyclidine Screen Neg (NEG) Urine Amphetamine/Methamphetamine Pos (NEG) Urine Benzodiazepines Screen Neg (NEG) Urine Cocaine Screen Neg (NEG) Urine Cannabinoids Screen Neg (NEG) Urine Ethyl Alcohol Neg (NEG) Bedside Urine HCG, Qualitative hcg negative (Negative) White Blood Count 10.9 x10^3/uL (4.0-11.0) Red Blood Count 5.06 x10^6/uL (3.50-5.40) Hemoglobin 14.8 g/dL (12.0-15.5) Hematocrit 44.2 % (36.0-47.0) Mean Corpuscular Volume 87 fL (79-100) Mean Corpuscular Hemoglobin 29 pg (25-35) Mean Corpuscular Hemoglobin Concent 34 g/dL (31-37) Red Cell Distribution Width 12.7 % (11.5-14.5) Platelet Count 284 x10^3/uL (140-400) Neutrophils (%) (Auto) 56 % (31-73) Lymphocytes (%) (Auto) 36 % (24-48) Monocytes (%) (Auto) 6 % (0-9) Eosinophils (%) (Auto) 1 % (0-3) Basophils (%) (Auto) 0 % (0-3) Neutrophils # (Auto) 6.1 x10^3uL (1.8-7.7) Lymphocytes # (Auto) 4.0 x10^3/uL (1.0-4.8) Monocytes # (Auto) 0.7 x10^3/uL (0.0-1.1) Eosinophils # (Auto) 0.1 x10^3/uL (0.0-0.7) Basophils # (Auto) 0.0 x10^3/uL (0.0-0.2) Erythrocyte Sedimentation Rate 3 (0-25) Prothrombin Time 12.1 SEC (9.4-11.4) Prothromb Time International Ratio 1.2 (0.9-1.1) Activated Partial Thromboplast Time 28 SEC (23-33) Sodium Level 141 mmol/L (136-145) Potassium Level 3.5 mmol/L (3.5-5.1) Chloride Level 107 mmol/L (98-107) Carbon Dioxide Level 25 mmol/L (21-32) Anion Gap 9 (6-14) Blood Urea Nitrogen 13 mg/dL (7-20) Creatinine 0.9 mg/dL (0.6-1.0) Estimated GFR (Cockcroft-Gault) 75.7 Glucose Level 86 mg/dL (70-99) Calcium Level 9.4 mg/dL (8.5-10.1) Magnesium Level 1.8 mg/dL (1.8-2.4) Total Bilirubin 0.3 mg/dL (0.2-1.0) Direct Bilirubin 0.1 mg/dL (0.0-0.2) Aspartate Amino Transf (AST/SGOT) 13 U/L (15-37) Alanine Aminotransferase (ALT/SGPT) 27 U/L (14-59) Alkaline Phosphatase 62 U/L (46-116) Total Protein 7.6 g/dL (6.4-8.2) Albumin 4.3 g/dL (3.4-5.0) Brief Hospital Course Ms. Zhong is a 24 old female who presented with suspect migraine headache and uti. Discharge Information Condition at Discharge: Improved, Stable Disposition/Orders: D/C to Home Dischare Medications Current Medications Lactated Ringer's 1,000 ml @ 1,000 mls/hr Q1H IV Last administered on 05/01 04/18at 23:08; Admin Dose 1,000 MLS/HR; Start 05/15/19 at 23:00; Stop 05/15/19 at 23:59; Status DC Ondansetron HCl (Zofran) 8 mg 1X ONCE IV Last administered on 05/15/19at 23:08; Admin Dose 8 MG; Start 05/15/19 at 23:15; Stop 05/15/19 at 23:16; Status DC Diphenhydramine HCl (Benadryl) 50 mg 1X ONCE IV Last administered on 05/15/19at 23:08; Admin Dose 50 MG; Start 05/15/19 at 23:15; Stop 05/15/19 at 23:16; Status DC Oxycodone/ Acetaminophen (Percocet 5/325) 2 tab 1X ONCE PO Last administered on 05/15/19at 23:09; Admin Dose 2 TAB; Start 05/15/19 at 23:15; Stop 05/15/19 at 23:16; Status DC Trimethoprim/ Sulfamethoxazole (Bactrim Ds) 1 tab 1X ONCE PO Last administered on 05/16/19at 00:29; Admin Dose 1 TAB; Start 05/16/19 at 00:30; Stop 05/16/19 at 00:31; Status DC Sumatriptan Succinate (Imitrex) 6 mg 1X ONCE SQ ; Start 05/16/19 at 00:30; Stop 05/16/19 at 00:31; Status DC Active Scripts Active Bactrim Ds Tablet (Sulfamethoxazole/Trimethoprim) 1 Each Tablet 1 Tab PO BID Zofran (Ondansetron Hcl) 8 Mg Tablet 8 Mg PO QIDPRN PRN Hydrocodone-Ibuprofen 7.5-200 (Hydrocodone/Ibuprofen) 1 Each Tablet 1 Tab PO PRN Q6HRS PRN Meloxicam 7.5 Mg Tablet 7.5 Mg PO DAILY Zantac (Ranitidine Hcl) 150 Mg Tablet 150 Mg PO BID 30 Days Zofran Odt (Ondansetron) 8 Mg Tab.rapdis 8 Mg PO QIDPRN Keflex (Cephalexin) 500 Mg Capsule 500 Mg PO TID 7 Days Bactrim Ds Tablet (Sulfamethoxazole/Trimethoprim) 1 Each Tablet 1 Tab PO BID Valium (Diazepam) 5 Mg Tablet 5 Mg PO TID 5 Days Please use one tablet every 8 hours as needed for muscle spasms. Do not drink alcohol or use other narcotics with this medication. Naprosyn (Naproxen) 500 Mg Tablet 1 Tab PO BID Ciprofloxacin Hcl 500 Mg Tablet 1 Tab PO BID Hydrocodone-Apap 5-325 (Hydrocodone Bit/Acetaminophen) 1 Each Tablet 1 Tab PO PRN Q6HRS PRN 5 Days Reported No Known Medications Prior To Admisstion (Info) Each 1 Each Dragshayna Disclaimer This chart was dictated in whole or in part using Voice Recognition software in a busy, high-work load, and often noisy Emergency Department environment. It may contain unintended and wholly unrecognized errors or omissions. ELA ROBERSON MD May 15, 2019 22:35
[2019-05-15 23:07] LABS: BARBITURATES NEG (NEG); BENZODIAZEPINES NEG (NEG); CANNABINOIDS NEG (NEG); COCAINE NEG (NEG); METHADONE NEG (NEG); OPIATES NEG (NEG); PHENCYCLIDINE NEG (NEG)
[2019-05-15 23:08] LABS: AMPHETAMINE/METHAMPHETAMINE POS (NEG)
[2019-05-15] MEDS: IV RINGERS SOLUTION,LACTATED 1,000 ML IV SCH (23:08)
[2019-05-15] MEDS: ONDANSETRON PF 4 MG/2 ML VIAL. IV ONE (23:08)
[2019-05-15] MEDS: diphenhydrAMINE 50 MG/ML VIAL IV ONE (23:08)
[2019-05-15] MEDS: oxyCODONE/APAP 5/325 1 TAB TABLET PO ONE (23:09)
[2019-05-15 23:14] LABS: BASO % 0 % (0-3); EOS # 0.1 x10^3/uL (0.0-0.7); EOS % 1 % (0-3); HEMATOCRIT 44.2 % (36.0-47.0); HEMOGLOBIN 14.8 g/dL (12.0-15.5); LYMPH % 36 % (24-48); MEAN CORPUSCULAR HEMOGLOBIN 29 pg (25-35); MEAN CORPUSCULAR HGB CONC 34 g/dL (31-37); MEAN CORPUSCULAR VOLUME 87 fL (79-100); MONO # 0.7 x10^3/uL (0.0-1.1); MONO % 6 % (0-9); NEUT # 6.1 x10^3uL (1.8-7.7); NEUT % 56 % (31-73); PLATELET COUNT 284 x10^3/uL (140-400); RED BLOOD COUNT 5.06 x10^6/uL (3.50-5.40); RED CELL DISTRIBUTION WIDTH 12.7 % (11.5-14.5); WHITE BLOOD COUNT 10.9 x10^3/uL (4.0-11.0)
[2019-05-15 23:15] LABS: BACTERIA,URINE MOD /HPF (0-FEW); BILIRUBIN,URINE NEG (NEG); CLARITY,URINE CLEAR; COLOR,URINE YELLOW; GLUCOSE,URINE NEG (NEG); NITRITE,URINE NEG (NEG); SQUAMOUS EPITHELIAL CELL,UR MANY /LPF; UROBILINOGEN,URINE 0.2 mg/dL (0.2 mg/dL)
[2019-05-15 23:29] LABS: ALBUMIN 4.3 g/dL (3.4-5.0); CALCIUM 9.4 mg/dL (8.5-10.1); CREATININE 0.9 mg/dL (0.6-1.0); DIRECT BILIRUBIN 0.1 mg/dL (0.0-0.2); GFR 75.7; MAGNESIUM 1.8 mg/dL (1.8-2.4); POTASSIUM 3.5 mmol/L (3.5-5.1); TOTAL BILIRUBIN 0.3 mg/dL (0.2-1.0); TOTAL PROTEIN 7.6 g/dL (6.4-8.2)
[2019-05-15 23:52] VITALS: BP 127/89
--- NOTE | 2019-05-16 00:07 | RAD ---
RS Compliance Statement: One or more of the following individualized dose reduction techniques were utilized for this examination: 1. Automated exposure control 2. Adjustment of the mA and/or kV according to patient size 3. Use of iterative reconstruction technique CT HEAD WITHOUT CONTRAST History: Headache x3 days. Comparison: None. Procedure: Axial images are obtained of the head from the skull base through the vertex without IV contrast. Findings: The ventricles and sulci are normal for the patient's age. No mass-effect, midline shift, hemorrhage, extra-axial fluid collection, or obvious acute infarction is identified. Basilar cisterns are patent. Bone windows demonstrate no acute calvarial abnormality. The visualized paranasal sinuses are clear. Mastoid air cells are well aerated. IMPRESSION: No acute intracranial abnormality. Electronically signed by: Jose Manuel Nance MD (05/16/2019 12:05 AM) [facility]
[2019-05-16 00:22] LABS: SEDIMENTATION RATE 3 (0-25)
[2019-05-16] MEDS ORDERED: SULF1TAB24 PO (00:25)
[2019-05-16] MEDS ORDERED: ONDA8TAB9 PO (00:25)
[2019-05-16] MEDS ORDERED: HYDR-1179 PO (00:25)
[2019-05-16] MEDS: SMZ/TMP 800/160MG TABLET. PO ONE (00:29)
[2019-05-16] MEDS: SUMAtriptan SUCC 6 MG/0.5 ML VIAL SQ ONE (00:30)
--- NOTE | 2019-05-17 06:53 | EKG ---
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
== END 2019-05-16 00:33 | disposition home or self-care (01) ==
LOC: ER 22:33
DX: G43.909 Migraine, unspecified, not intractable, without status migrainosus (principal); R42 Dizziness and giddiness; N39.0 Urinary tract infection, site not specified; F15.90 Other stimulant use, unspecified, uncomplicated; Z87.440 Personal history of urinary (tract) infections
CPT/HCPCS: 36415; 70450; 80048; 80076; 80307; 81001; 81025; 83735; 84443; 85025; 85610; 85651; 85730; 87086; 93005; 96361; 96374; 96375; 99285; J1200; J2405; J7120

== ENCOUNTER → 2019-07-12 | Outpatient (CLI) | payer BC ==
[~2019-07-12] MED LIST changes: +HYDR-1179 PO; +ONDA8TAB9 PO
--- NOTE | 2019-07-12 16:08 | RAD ---
EXAM: AP, mortise, lateral views left ankle DATE: 07/12/2019 12:00 AM INDICATION: Left ankle pain COMPARISON: No Prior FINDINGS/ IMPRESSION: No evidence of acute fracture or dislocation. Ankle mortise is congruent. Talar dome is intact. No significant soft tissue swelling. Achilles tendon silhouette is preserved. Plantar arch is grossly preserved. Electronically signed by: Curtis Sotelo MD (07/12/2019 4:06 PM) [facility]
== END | disposition home or self-care (01) ==
LOC: DXRAD 11:55
PROVIDERS: ATTEND Orthopaedic Surgery Sports Medicine
DX: M25.572 Pain in left ankle and joints of left foot (principal)
CPT/HCPCS: 73610

== ENCOUNTER 2019-09-26 02:25 | Emergency (ER) | payer BC ==
[~2019-09-26] VITALS: Ht 157.5 cm; Wt 88.2 kg
--- NOTE | 2019-09-26 02:31 | ED.ADGEN ---
Past History Past Medical History: No Pertinent History, Migraines, UTI Past Surgical History: Cholecystectomy, Tonsillectomy, Other Additional Past Surgical Histo: left wrist surgery Smoking: Non-smoker Alcohol Use: Occasionally Drug Use: None Adult General Chief Complaint Chief Complaint ".. I went out drinking tonight.. I had like 4 rum and cokes.. I done this before with no problem.. but after I got home I got a extreme headache.. and started vomiting .. then dry heaves.. I worried maybe my drink was spike.. I ve never been this messed up before.. ".. I always just drink four Vielka Garcia Rum and cokes...that my drink .. and I go home.. I was so messed up.. " ".. This was the worse I ve ever seen her.. she was confused... uncoordinated... siting in the floor crying.. I ve known her a long time.. and seen her drink b efore.. " ( friend). HPI HPI Patient is a 24 year old female who presents with above hx and complaints says change after drinking Rum and coke at local bar. Patient states she did not have excessive alcohol but felt like she had been drugged. Her friend also via she appeared to have acute mental status change and persistent vomiting after getting home. Patient denies any head trauma. Patient denies previous symptoms like this after intaking alcohol. Patient does occasionally have migraines. Patient reports current headache started after vomiting repeatedly. No history of bad food intake. No specific ill contacts.. Review of Systems Review of Systems Constitutional: Denies fever or chills [] Eyes: Denies change in visual acuity, redness, or eye pain [] HENT: Denies nasal congestion or sore throat [] Respiratory: Denies cough or shortness of breath [] Cardiovascular: No additional information not addressed in HPI [] GI: Complaints of epigastric abdominal pain, nausea, vomiting,. Denies bloody stools or diarrhea [] : Denies dysuria or hematuria [] Musculoskeletal: Denies back pain or joint pain [] Integument: Denies rash or skin lesions [] Neurologic: Complaints of headache, focal weakness or sensory changes []complaints of episodes of confusion and dizziness Endocrine: Denies polyuria or polydipsia [] All other systems were reviewed and found to be within normal limits, except as documented in this note. Family History Family History Family history of coronary artery disease hypertension diabetes early onset of heart attacks heart failure and strokes starting in age 30 Current Medications Current Medications Current Medications Medications (Trade) Dose Ordered Sig/Madelin Start Time Stop Time Status Last Admin Dose Admin Lactated Ringer's 1,000 ml @ 100 mls/hr Q10H 09/26/19 03:30 09/26/19 05:51 DC 09/26/19 03:30 100 MLS/HR Ondansetron HCl (Zofran) 8 mg 1X ONCE 09/26/19 03:30 09/26/19 03:31 DC 09/26/19 03:30 8 MG Oxycodone/ Acetaminophen (Percocet 5/325) 2 tab 1X ONCE 09/26/19 05:30 09/26/19 05:31 DC 09/26/19 05:26 2 TAB See nursing for home meds Allergies Allergies Allergies Coded Allergies Type Severity Reaction Last Updated Verified No Known Drug Allergies 05/16/18 No Physical Exam Physical Exam Constitutional: Moderate acute distress, appearance of intoxication HENT: Normocephalic, atraumatic, bilateral external ears normal, oropharynx moist, no oral exudates, nose normal. [] Eyes: PERRLA, EOMI, conjunctiva injected, no discharge. [] Neck: Normal range of motion, no tenderness, supple, no stridor. [] Cardiovascular:Heart rate regular rhythm, no murmur [] Lungs & Thorax: Bilateral breath sounds equal apex on auscultation [] Abdomen: Bowel sounds normal, soft, epigastric tenderness, no masses, no pulsatile masses. Obese. Skin: Warm, dry, no erythema, no rash. [] Back: No tenderness, no CVA tenderness. [] Extremities: No tenderness, no cyanosis, no clubbing, ROM intact, no edema. [] Scar left forearm Neurologic: Alert and oriented X 3, normal motor function, normal sensory function, no focal deficits noted. []DTRs +2 patella and brachial. No drift. Right-hand dominant. Psychologic: Affect anxious, judgement normal, mood normal. [] Current Patient Data Vital Signs Vital Signs Date Time Temp Pulse Resp B/P (MAP) Pulse Ox O2 Delivery O2 Flow Rate FiO2 09/26/19 05:27 79 18 122/61 (81) 100 10/27/19 02:25 98.1 Room Air Lab Results Laboratory Tests Test 09/26/19 03:10 09/26/19 03:15 White Blood Count 9.3 x10^3/uL (4.0-11.0) Red Blood Count 5.26 x10^6/uL (3.50-5.40) Hemoglobin 15.8 g/dL (12.0-15.5) H Hematocrit 46.7 % (36.0-47.0) Mean Corpuscular Volume 89 fL (79-100) Mean Corpuscular Hemoglobin 30 pg (25-35) Mean Corpuscular Hemoglobin Concent 34 g/dL (31-37) Red Cell Distribution Width 12.5 % (11.5-14.5) Platelet Count 318 x10^3/uL (140-400) Neutrophils (%) (Auto) 60 % (31-73) Lymphocytes (%) (Auto) 32 % (24-48) Monocytes (%) (Auto) 6 % (0-9) Eosinophils (%) (Auto) 1 % (0-3) Basophils (%) (Auto) 1 % (0-3) Neutrophils # (Auto) 5.6 x10^3uL (1.8-7.7) Lymphocytes # (Auto) 2.9 x10^3/uL (1.0-4.8) Monocytes # (Auto) 0.5 x10^3/uL (0.0-1.1) Eosinophils # (Auto) 0.1 x10^3/uL (0.0-0.7) Basophils # (Auto) 0.1 x10^3/uL (0.0-0.2) Prothrombin Time 11.5 SEC (9.4-11.4) H Prothrombin Time INR 1.1 (0.9-1.1) Activated Partial Thromboplast Time 29 SEC (23-33) D-Dimer (Mandy) < 0.19 mg/L (0.00-0.50) Maternal Serum HCG Beta Subunit < 1 mIU/mL (0-6) Sodium Level 145 mmol/L (136-145) Potassium Level 3.5 mmol/L (3.5-5.1) Chloride Level 107 mmol/L (98-107) Carbon Dioxide Level 26 mmol/L (21-32) Anion Gap 12 (6-14) Blood Urea Nitrogen 11 mg/dL (7-20) Creatinine 0.8 mg/dL (0.6-1.0) Estimated GFR (Cockcroft-Gault) 86.7 Glucose Level 112 mg/dL (70-99) H Calcium Level 8.8 mg/dL (8.5-10.1) Magnesium Level 2.0 mg/dL (1.8-2.4) Total Bilirubin 0.2 mg/dL (0.2-1.0) Direct Bilirubin 0.1 mg/dL (0.0-0.2) Aspartate Amino Transferase (AST) 16 U/L (15-37) Alanine Aminotransferase (ALT) 26 U/L (14-59) Alkaline Phosphatase 75 U/L (46-116) Creatine Kinase 120 U/L (26-192) Troponin I Quantitative < 0.017 ng/mL (0-0.055) BI-Ker-E-Type Natriuretic Peptide 13 pg/mL (0-124) Total Protein 8.2 g/dL (6.4-8.2) Albumin 4.2 g/dL (3.4-5.0) Lipase 99 U/L (73-393) Ethyl Alcohol Level 109 mg/dL (0-10) H Urine Collection Type Unknown Urine Color Yellow Urine Clarity Clear Urine pH 6.0 Urine Specific [place] 1.025 Urine Protein Neg (NEG-TRACE) Urine Glucose (UA) Neg mg/dL (NEG) Urine Ketones (Stick) Neg mg/dL (NEG) Urine Blood Small (NEG) Urine Nitrite Neg (NEG) Urine Bilirubin Neg (NEG) Urine Urobilinogen Dipstick 0.2 mg/dL (0.2 mg/dL) Urine Leukocyte Esterase Neg (NEG) Urine RBC Occ /HPF (0-2) Urine WBC Occ /HPF (0-4) Urine Squamous Epithelial Cells Few /LPF Urine Bacteria 0 /HPF (0-FEW) Urine Mucus Slight /LPF Urine Opiates Screen Neg (NEG) Urine Methadone Screen Neg (NEG) Urine Barbiturates Neg (NEG) Urine Phencyclidine Screen Neg (NEG) Urine Amphetamine/Methamphetamine Neg (NEG) Urine Benzodiazepines Screen Neg (NEG) Urine Cocaine Screen Neg (NEG) Urine Cannabinoids Screen Neg (NEG) Urine Ethyl Alcohol Pos (NEG) EKG EKG My interpretation EKG shows a sinus rhythm at 84 bpm. No acute morphology[] Radiology/Procedures Radiology/Procedures [address] [address] IMAGING REPORT Signed PATIENT: SHEFALI ZHONG ACCOUNT: [id number] : 1995 LOCATION: ER AGE: 24 SEX: F EXAM STATUS: DEP ER ORD. PHYSICIAN: ELA ROBERSON MD REASON: Abdomen pain, nausea, vomiting PROCEDURE: ACUTE ABDOMEN SERIES Acute Abdominal Series: Technique: PA view of the chest and supine and upright views of the abdomen were obtained. History: Pain. Comparison: None. Findings: The lungs and pleural margins are clear. The bowel gas pattern appears normal. There is no free air. Impression: Radiographically normal acute abdominal series. Electronically signed by: Mary Dobbins III, MD (09/26/2019 6:02 AM) [id number] DICTATED AND SIGNED BY: MARY DOBBINS III, MD DATE: 09/26/19601 CC: ELA ROBERSON MD; TRIPP DOWNING MD ~ [][address] [address] IMAGING REPORT Signed PATIENT: SHEFALI ZHONG ACCOUNT: [id number] : 1995 LOCATION: ER AGE: 24 SEX: F EXAM STATUS: REG ER ORD. PHYSICIAN: ELA ROBERSON MD REASON: NV, CONFUSED, WATERMAN PROCEDURE: CT HEAD WO CONTRAST CT Head W/O Contrast: History: Nausea vomiting confused and headache Comparison: none Axial images were obtained without contrast. The cancino and white matter appears normal and symmetrical for the patients age. There is no mass effect, extraaxial fluid collections or hydrocephalus. There is no gross bleed. There is no focal loss of cancino-white matter distinction to suggest acute ischemia, i.e. stroke. Impression: No acute findings. PQRS Compliance Statement: One or more of the following individualized dose reduction techniques were utilized for this examination: 1. Automated exposure control 2. Adjustment of the mA and/or kV according to patient size 3. Use of iterative reconstruction technique Electronically signed by: Mary Dobbins III, MD (09/26/2019 4:32 AM) [facility] DICTATED AND SIGNED BY: MARY DOBBINS III, MD DATE: 09/26/19 0432 CC: ELA ROBERSON MD; TRIPP DOWNING MD ~ Course & Med Decision Making Course & Med Decision Making Pertinent Labs and Imaging studies reviewed. (See chart for details) Pt. requesting discharge.. Reports symptom had resolved. Pt. Friend also states she was back at her baseline. Patient encouraged follow-up primary care. Patient encouraged to return if any concerns. Or changes in symptoms. Reviewed labs and answered questions. Patient currently declines admission for further evaluation. Patient declines spinal tap. Time of discharge patient exhibited UCAR capacity. [] Final Impression Final Impression 1. Mental Status Change 2. Headache[] 3. Alcohol level 109 4. Nausea and vomiting 5. Possible ingestion of toxins while at bar Dragon Disclaimer Dragon Disclaimer This electronic medical record was generated, in whole or in part, using a voice recognition dictation system. Dragon Disclaimer This chart was dictated in whole or in part using Voice Recognition software in a busy, high-work load, and often noisy Emergency Department environment. It may contain unintended and wholly unrecognized errors or omissions. ELA ROBERSON MD Sep 26, 2019 02:31
--- NOTE | 2019-09-26 03:14 | EKG ---
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
[2019-09-26] MEDS ORDERED: ONDANSETRON PF 4 MG/2 ML VIAL. IVP ONE (03:30)
[2019-09-26] MEDS ORDERED: IV RINGERS SOLUTION,LACTATED 1,000 ML IV SCH (03:30)
[2019-09-26 03:46] LABS: BASO # 0.1 x10^3/uL (0.0-0.2); BASO % 1 % (0-3); EOS # 0.1 x10^3/uL (0.0-0.7); EOS % 1 % (0-3); HEMATOCRIT 46.7 % (36.0-47.0); HEMOGLOBIN 15.8 g/dL (12.0-15.5); LYMPH # 2.9 x10^3/uL (1.0-4.8); LYMPH % 32 % (24-48); MEAN CORPUSCULAR HEMOGLOBIN 30 pg (25-35); MEAN CORPUSCULAR HGB CONC 34 g/dL (31-37); MEAN CORPUSCULAR VOLUME 89 fL (79-100); MONO # 0.5 x10^3/uL (0.0-1.1); MONO % 6 % (0-9); NEUT # 5.6 x10^3uL (1.8-7.7); NEUT % 60 % (31-73); PLATELET COUNT 318 x10^3/uL (140-400); RED BLOOD COUNT 5.26 x10^6/uL (3.50-5.40); RED CELL DISTRIBUTION WIDTH 12.5 % (11.5-14.5); WHITE BLOOD COUNT 9.3 x10^3/uL (4.0-11.0)
[2019-09-26 03:54] LABS: BARBITURATES NEG (NEG); BENZODIAZEPINES NEG (NEG); CANNABINOIDS NEG (NEG); COCAINE NEG (NEG); METHADONE NEG (NEG); OPIATES NEG (NEG); PHENCYCLIDINE NEG (NEG)
[2019-09-26 03:58] LABS: AMPHETAMINE/METHAMPHETAMINE NEG (NEG)
[2019-09-26 04:08] LABS: ALBUMIN 4.2 g/dL (3.4-5.0); CALCIUM 8.8 mg/dL (8.5-10.1); CREATININE 0.8 mg/dL (0.6-1.0); DIRECT BILIRUBIN 0.1 mg/dL (0.0-0.2); GFR 86.7; POTASSIUM 3.5 mmol/L (3.5-5.1); TOTAL BILIRUBIN 0.2 mg/dL (0.2-1.0); TOTAL PROTEIN 8.2 g/dL (6.4-8.2)
[2019-09-26 04:09] LABS: BACTERIA,URINE 0 /HPF (0-FEW); BILIRUBIN,URINE NEG (NEG); CLARITY,URINE CLEAR; COLOR,URINE YELLOW; GLUCOSE,URINE NEG (NEG); NITRITE,URINE NEG (NEG); RBC,URINE OCC /HPF (0-2); SQUAMOUS EPITHELIAL CELL,UR FEW /LPF; UROBILINOGEN,URINE 0.2 mg/dL (0.2 mg/dL); WBC,URINE OCC /HPF (0-4)
--- NOTE | 2019-09-26 04:34 | RAD ---
CT Head W/O Contrast: History: Nausea vomiting confused and headache Comparison: none Axial images were obtained without contrast. The cancino and white matter appears normal and symmetrical for the patients age. There is no mass effect, extraaxial fluid collections or hydrocephalus. There is no gross bleed. There is no focal loss of cancino-white matter distinction to suggest acute ischemia, i.e. stroke. Impression: No acute findings. RS Compliance Statement: One or more of the following individualized dose reduction techniques were utilized for this examination: 1. Automated exposure control 2. Adjustment of the mA and/or kV according to patient size 3. Use of iterative reconstruction technique Electronically signed by: Harsh Lubin III, MD (09/26/2019 4:32 AM) [facility]
[2019-09-26 05:27] VITALS: BP 122/61
[2019-09-26] MEDS ORDERED: oxyCODONE/APAP 5/325 1 TAB TABLET PO ONE (05:30)
--- NOTE | 2019-09-26 06:05 | RAD ---
Acute Abdominal Series: Technique: PA view of the chest and supine and upright views of the abdomen were obtained. History: Pain. Comparison: None. Findings: The lungs and pleural margins are clear. The bowel gas pattern appears normal. There is no free air. Impression: Radiographically normal acute abdominal series. Electronically signed by: Harsh Lubin III, MD (09/26/2019 6:02 AM) [facility]
== END 2019-09-26 05:30 | disposition home or self-care (01) ==
LOC: ER 02:25
DX: R41.82 Altered mental status, unspecified (principal); G43.909 Migraine, unspecified, not intractable, without status migrainosus; F10.10 Alcohol abuse, uncomplicated; R11.2 Nausea with vomiting, unspecified; Z87.440 Personal history of urinary (tract) infections; Z90.49 Acquired absence of other specified parts of digestive tract; Y90.5 Blood alcohol level of 100-119 mg/100 ml
CPT/HCPCS: 36415; 70450; 74022; 80048; 80076; 80307; 81001; 82550; 83690; 83735; 83880; 84443; 84484; 84702; 85025; 85379; 85610; 85730; 93005; 96361; 96374; 99285; G0480; J2405; J7120

== ENCOUNTER → 2020-06-22 | Outpatient (CLI) | payer BC ==
--- NOTE | 2020-06-22 15:30 | RAD ---
EXAM: Abdomen and pelvis CT without intravenous contrast. HISTORY: Hematuria. TECHNIQUE: Computed tomographic images of the abdomen and pelvis were obtained without contrast. Multiplanar reformatting was performed. *One or more of the following individualized dose reduction techniques were utilized for this examination: 1. Automated exposure control. 2. Adjustment of the mA and/or kV according to patient size. 3. Use of iterative reconstruction technique. COMPARISON: 08/16/2018. FINDINGS: Evaluation of the lower thorax is unremarkable. The liver is prominent in size. No focal hepatic lesion is seen. The gallbladder is surgically absent. The pancreas, spleen, adrenal glands and stomach are unremarkable. There is no appendicitis. There is no bowel obstruction. There are few tiny punctate bilateral renal stones, the largest of which measures 1 mL within the right lower pole. No obstructing renal stone is seen. The urinary bladder is unremarkable. The uterus and adnexal regions are unremarkable. There is no lymphadenopathy. There is no suspicious osseous lesion. IMPRESSION: 1. Punctate nonobstructing bilateral renal stones. 2. No acute abdominal or pelvic finding. Electronically signed by: Karen Adler MD (06/22/2020 3:27 PM) [id number]
== END ==
LOC: CT 14:20
PROVIDERS: ATTEND Physician Assistant
DX: N20.0 Calculus of kidney (principal)
CPT/HCPCS: 74176

== ENCOUNTER → 2021-02-16 | Outpatient (CLI) | payer BC ==
[2021-01-17 23:59] VITALS: BP 157/98
[~2021-02-16] MED LIST changes: -CIPR500T PO; +CIPR500T2 PO
--- NOTE | 2021-02-16 16:42 | RAD ---
EXAM: Lumbar spine, 3 views. HISTORY: Pain. COMPARISON: CT dated 01/17/2021. FINDINGS: 3 views of the lumbar spine are obtained. There is minimal retrolisthesis of L5 on S1. Ther e is degenerative endplate remodeling with disc space narrowing and Schmorl's node formation at T11-T 12. There is mild decreased vertebral body height at T11, likely degenerative or the sequela of remot e injury. IMPRESSION: 1. Degenerative change at T11-T12. 2. No acute osseous finding. Electronically signed by: Karen Adler MD (02/16/2021 4:40 PM) [id number]
== END ==
LOC: DXRAD 12:24
PROVIDERS: ATTEND Physician Assistant
DX: M47.814 Spondylosis without myelopathy or radiculopathy, thoracic region (principal); M43.17 Spondylolisthesis, lumbosacral region; M51.44 Schmorl's nodes, thoracic region
CPT/HCPCS: 72100

== ENCOUNTER 2021-04-14 23:16 | Emergency (ER) | payer BC ==
[~2021-04-14] VITALS: Ht 157.5 cm; Wt 96.0 kg
[2021-04-14] MEDS ORDERED: PROCHLORPERAZINE 10 MG/2 ML VIAL. IV ONE (23:30)
[2021-04-14] MEDS ORDERED: diphenhydrAMINE 50 MG/ML VIAL IVP ONE (23:30)
[2021-04-14] MEDS ORDERED: ONDANSETRON PF 4 MG/2 ML VIAL. IVP ONE (23:30)
--- NOTE | 2021-04-14 23:45 | PHYS DOC ---
Past History Past Medical History: No Pertinent History Past Surgical History: Other Additional Past Surgical Histo: left wrist surgery, R KNEEE SURGERY Smoking: Non-smoker Alcohol Use: None Drug Use: None Adult General Chief Complaint Chief Complaint: HEADACHE HPI HPI Patient is a 26-year-old female with a past medical history of migraines who presents to emergency department with a chief complaint of migraine. States has been going on intermittently over the last week but over the last couple of days has been relatively constant, whole head, 7 out of 10, with no radiation. States she is taking her normal migraine medicines which only helped a little. Endorses photophobia but no phonophobia and no vomiting but does have occasional mild nausea. Denies any recent travels, traumas, fevers, illnesses, known ill contacts, chest pain, shortness of breath, abdominal pain, dysuria, hematuria or blood in the stool. Denies any alcohol or drug use. Denies any numbness/weakness/tingling. Review of Systems Review of Systems Review of systems otherwise unremarkable except noted in HPI Current Medications Current Medications Current Medications Medications (Trade) Dose Ordered Sig/Madelin Start Time Stop Time Status Last Admin Dose Admin Diphenhydramine HCl (Benadryl) 50 mg 1X ONCE 04/14/21 23:30 04/14/21 23:32 DC Ondansetron HCl (Zofran) 8 mg 1X ONCE 04/14/21 23:30 04/14/21 23:31 DC Prochlorperazine Edisylate (Compazine) 10 mg 1X ONCE 04/14/21 23:30 04/14/21 23:32 DC Allergies Allergies Allergies Coded Allergies Type Severity Reaction Last Updated Verified No Known Drug Allergies 05/16/18 No Physical Exam Physical Exam Constitutional: Well developed, well nourished, no acute distress, non-toxic appearance. [] HENT: Normocephalic, atraumatic, bilateral external ears normal, oropharynx moist, no oral exudates, nose normal. [] Eyes: PERRLA, EOMI, conjunctiva normal, no discharge. [] Neck: Normal range of motion, no tenderness, supple, no stridor. [] Cardiovascular:Heart rate regular rhythm, no murmur [] Lungs & Thorax: Bilateral breath sounds clear to auscultation [] Abdomen: soft, no tenderness, Skin: Warm, dry, no erythema, no rash. [] Back: No tenderness, Extremities: No tenderness, no cyanosis, no clubbing, ROM intact, no edema. [] Neurologic: Alert and oriented X 3, normal motor function, normal sensory function, able to sit without issue, able to ambulate without issue, no focal deficits noted. [] Psychologic: Affect normal, judgement normal, mood normal. [] Current Patient Data Vital Signs Vital Signs Date Time Temp Pulse Resp B/P (MAP) Pulse Ox O2 Delivery O2 Flow Rate FiO2 04/14/21 23:31 98.6 86 16 146/85 (105) 98 Room Air EKG EKG [] Radiology/Procedures Radiology/Procedures [] Heart Score C/O Chest Pain: No Risk Factors: Risk Factors: DM, Current or recent (<one month) smoker, HTN, HLP, family history of CAD, obesity. Risk Scores: Risk Factors: DM, Current or recent (<one month) smoker, HTN, HLP, family history of CAD, obesity. Course & Med Decision Making Course & Med Decision Making Patient is a 26-year-old female who presents with migraine Vital signs not concerning. Physical exam noted above. Given migraine cocktail. On reassessment, patient awake, alert and smiling stating that her headache had completely resolved and was very appreciative. Asked to be discharged home. Discussed migraine management at home. Advised to follow-up with primary care physician. Gave return precautions to the ED. Family very grateful, verbalized understanding and agreed with plan of discharge. Dragon Disclaimer Dragon Disclaimer This electronic medical record was generated, in whole or in part, using a voice recognition dictation system. Departure Departure: Impression: Primary Impression: Migraine Disposition: 01 HOME / SELF CARE / HOMELESS Condition: GOOD Referrals: TRIPP DOWNING MD (PCP) Patient Instructions: Migraine Headache Additional Instructions: Please read all the attached information. You can use a migraine cocktail at home including ibuprofen, Excedrin and Benadryl as discussed. Please follow-up with your primary care physician soon as you can to set up a follow-up visit. Please come back to the ED with new or concerning symptoms as discussed. LEAH PALMER MD April 14, 2021 23:45
[2021-04-15 00:57] VITALS: BP 142/70
== END 2021-04-15 00:58 | disposition home or self-care (01) ==
LOC: ER 23:25
DX: G43.909 Migraine, unspecified, not intractable, without status migrainosus (principal)
CPT/HCPCS: 96374; 96375; 99284; J0780; J1200; J2405

== ENCOUNTER 2021-09-04 21:29 | Emergency (ER) | payer BC ==
[~2021-09-04] VITALS: Ht 157.5 cm; Wt 101.0 kg
--- NOTE | 2021-09-04 21:55 | PHYS DOC ---
Past History Past Medical History: No Pertinent History (VIVIAN RHODES APRN) Past Surgical History: Cholecystectomy, Other Additional Past Surgical Histo: left wrist surgery, R KNEEE SURGERY (VIVIAN RHODES APRN) Smoking: Non-smoker Alcohol Use: None Drug Use: None (VIVIAN RHODES APRN) General Adult EDM: Chief Complaint: ABDOMINAL PAIN HPI: HPI: Patient is a 26-year-old female who presents to the emergency department for left upper quadrant and left flank pain that started 2 weeks ago. Patient rates her pain 6 out of 10. No treatment prior to arrival. She is reporting nausea. She states it feels like something is moving around in her abdomen. She denies hematuria, dysuria, urinary urgency, frequency, vomiting, diarrhea. Patient had last bowel movement today. (VIVIAN RHODES APRN) Review of Systems: Review of Systems: 14 body systems of the review of systems have been reviewed. See HPI for pertinent positive and negative responses, otherwise all other systems are negative, nonpertinent or noncontributory (VIVIAN RHODES APRN) Allergies: Allergies: Allergies Coded Allergies Type Severity Reaction Last Updated Verified No Known Drug Allergies 05/16/18 No (VIVIAN RHODES APRN) Physical Exam: PE: Constitutional: Well developed, well nourished, no acute distress, non-toxic appearance. [] HENT: Normocephalic, atraumatic, bilateral external ears normal, oropharynx moist, no oral exudates, nose normal. [] Eyes: PERRL, EOMI, conjunctiva normal, no discharge. [] Neck: Normal range of motion, no stridor Cardiovascular:Heart rate regular rhythm, no murmur [] Lungs & Thorax: Bilateral breath sounds clear to auscultation [] Abdomen: Bowel sounds normal, soft, no tenderness, no masses, no pulsatile masses. [] Skin: Warm, dry, no erythema, no rash. [] Back: No tenderness, no CVA tenderness. [] Extremities: No tenderness, no cyanosis, no clubbing, ROM intact, no edema. [] Neurologic: Alert and oriented X 3, normal motor function, normal sensory function, no focal deficits noted. [] Psychologic: Affect normal, judgement normal, mood normal. [] (VIVIAN RHODES APRN) Current Patient Data: Labs: Laboratory Tests Test 09/04/21 22:25 09/04/21 22:37 White Blood Count 13.4 x10^3/uL Red Blood Count 4.99 x10^6/uL Hemoglobin 15.0 g/dL Hematocrit 44.3 % Mean Corpuscular Volume 89 fL Mean Corpuscular Hemoglobin 30 pg Mean Corpuscular Hemoglobin Concent 34 g/dL Red Cell Distribution Width 12.6 % Platelet Count 301 x10^3/uL Neutrophils (%) (Auto) 56 % Lymphocytes (%) (Auto) 34 % Monocytes (%) (Auto) 7 % Eosinophils (%) (Auto) 2 % Basophils (%) (Auto) 1 % Neutrophils # (Auto) 7.4 x10^3uL Lymphocytes # (Auto) 4.6 x10^3/uL Monocytes # (Auto) 1.0 x10^3/uL Eosinophils # (Auto) 0.2 x10^3/uL Basophils # (Auto) 0.2 x10^3/uL Urine Collection Type Unknown Urine Color Yellow Urine Clarity Clear Urine pH 6.5 Urine Specific [place] 1.025 Urine Protein Neg Urine Glucose (UA) Neg mg/dL Urine Ketones (Stick) Neg mg/dL Urine Blood Mod Urine Nitrite Neg Urine Bilirubin Neg Urine Urobilinogen Dipstick 0.2 mg/dL Urine Leukocyte Esterase Neg Urine RBC Occ /HPF Urine WBC Occ /HPF Urine Squamous Epithelial Cells Mod /LPF Urine Bacteria 0 /HPF Sodium Level 141 mmol/L Potassium Level 3.4 mmol/L Chloride Level 105 mmol/L Carbon Dioxide Level 27 mmol/L Anion Gap 9 Blood Urea Nitrogen 15 mg/dL Creatinine 0.8 mg/dL Estimated GFR (Cockcroft-Gault) 85.4 BUN/Creatinine Ratio 19 Glucose Level 103 mg/dL Calcium Level 9.2 mg/dL Total Bilirubin 0.2 mg/dL Aspartate Amino Transf (AST/SGOT) 13 U/L Alanine Aminotransferase (ALT/SGPT) 36 U/L Alkaline Phosphatase 79 U/L Total Protein 8.0 g/dL Albumin 4.2 g/dL Albumin/Globulin Ratio 1.1 Lipase 76 U/L Bedside Urine HCG, Qualitative hcg negative Current Medications Medications (Trade) Dose Ordered Sig/Madelin Route PRN Reason Start Time Stop Time Status Last Admin Dose Admin Sodium Chloride 1,000 ml @ 100 mls/hr Q10H IV 09/04/21 22:00 09/05/21 07:59 09/04/21 22:50 Iohexol (Omnipaque 300 Mg/ml) 75 ml 1X ONCE IV 09/04/21 22:00 09/04/21 22:15 DC 09/04/21 22:36 Ondansetron HCl (Zofran) 4 mg 1X ONCE IVP 09/04/21 22:00 09/04/21 22:15 DC Fentanyl Citrate (Fentanyl 2ml Vial) 50 mcg 1X ONCE IVP 09/04/21 22:00 09/04/21 22:27 DC Ketorolac Tromethamine (Toradol 15mg Vial) 15 mg 1X ONCE IVP 09/04/21 22:45 09/04/21 22:50 DC 09/04/21 22:45 Ketorolac Tromethamine (Toradol 30mg Vial) 30 mg STK-MED ONCE .ROUTE 09/04/21 22:47 09/04/21 22:47 DC Vital Signs: Vital Signs Date Time Temp Pulse Resp B/P (MAP) Pulse Ox O2 Delivery O2 Flow Rate FiO2 09/04/21 21:29 98.2 91 18 147/90 (109) 97 Room Air (VIVIAN RHODES APRN) EKG: EKG: [] (VIVIAN RHODES APRN) Radiology/Procedures: Radiology/Procedures: []PROCEDURE: CT ABD PELV W/ IV CONTRST ONLY CT abdomen pelvis with contrast dated 09/04/2021. COMPARISON: 06/22/2020. Clinical data indication: Flank pain. TECHNIQUE: Contiguous axial imaging the abdomen pelvis performed after the administration of 75 cc Omnipaque 300. One or more of the following individualized dose reduction techniques were utilized for this examination: 1. Automated exposure control 2. Adjustment of the mA and/or kV according to patient size 3. Use of iterative reconstruction technique FINDINGS: Limited images of lung bases are clear. Heart size within normal limits. No pleural or pericardial effusion. Liver is of diffuse low density suggesting mild fatty infiltration. No apparent mass. Biliary tree normal in caliber. The gallbladder is surgically absent. Spleen is normal in size. Pancreas, adrenal glands unremarkable. There is a pun ctate calcific stone at the lower pole right kidney. No ureteral stone or hydronephrosis. Gallbladder surgically absent. Unopacified GI tract normal in caliber and contour. No focal bowel wall thickening. No inflammatory stranding in the mesentery. The appendix is normal in caliber. No ascites or lymphadenopathy. Images of pelvis show nondistended urinary bladder. Uterus and adnexa are unremarkable. No free fluid or pelvic lymphadenopathy. Bone windows show no acute findings. Mild multilevel spondylosis. IMPRESSION: 1. No acute abnormality of abdomen or pelvis. Normal appendix. 2. Right-sided nephrolithiasis, nonobstructive. Electronically signed by: Chandu Cruz MD (09/04/2021 11:06 PM) [facility] [place] DICTATED AND SIGNED BY: CHANDU CRUZ MD DATE: 09/04/21 [id number] CC: EMERGENCY,DEPARTMENT; VIVIAN RHODES APRN; TRIPP DOWNING MD ~MTH0 0 (VIVIAN RHODES APRN) Heart Score: C/O Chest Pain: N/A Risk Factors: Risk Factors: DM, Current or recent (<one month) smoker, HTN, HLP, family history of CAD, obesity. Risk Scores: Score 0 - 3: 2.5% MACE over next 6 weeks - Discharge Home Score 4 - 6: 20.3% MACE over next 6 weeks - Admit for Clinical Observation Score 7 - 10: 72.7% MACE over next 6 weeks - Early Invasive Strategies (VIVIAN RHODES APRN) Course & Med Decision Making: Course & Med Decision Making Pertinent Labs and Imaging studies reviewed. (See chart for details) [] Patient is a 26-year-old female who presents to the ER for left upper quadrant/left flank pain. Work-up in the ER consisted of blood work, urinalysis and CT scan of abdomen. Lab work was unremarkable except for hypokalemia which was replaced in the emergency department. CT scan of abdomen shows nephrolithiasis but no obstruction. Patient advised to take Tylenol and ibuprofen for pain and increase fluids. Patient also educated to eat foods rich in potassium. Patient advised to follow-up with primary care provider. I discussed with patient all findings and diagnostic testing as well as the need to follow-up with PCP for further evaluation and treatment or return to the ER if any new or worsening symptoms. Strict return precautions were also discussed at length. Patient voiced understanding and agreement with the plan. Patient is hemodynamically stable at the time of disposition. (VIVIAN RHODES APRN) Dragon Disclaimer: Dragon Disclaimer: This electronic medical record was generated, in whole or in part, using a voice recognition dictation system. (VIVIAN RHODES APRN) Departure Departure: Impression: Primary Impression: Flank pain Additional Impression: Hypokalemia Disposition: 01 HOME / SELF CARE / HOMELESS Condition: GOOD Referrals: TRIPP DOWNING MD (PCP) Patient Instructions: Flank Pain, Hypokalemia Additional Instructions: You were seen in the emergency department for left-sided abdominal pain that radiated to your back. Your work-up in the ER was unremarkable however you were noted to have a slightly decreased potassium level. You were treated with a potassium supplement in the emergency department. Please make sure that you are eating potassium rich foods at home such as bananas and green leafy vegetables. You can take Tylenol or ibuprofen for your pain. Increase your fluids. Follow-up with your primary care provider tomorrow regarding your ER visit. Return to the emergency department if you develop severe abdominal pain, intractable nausea or vomiting, blood in your stools or vomit, high fevers refractory to treatment any new or worsening concerns. EMERGENCY DEPARTMENT GENERAL DISCHARGE INSTRUCTIONS Thank you for coming to [facility] (ED) today and trusting us with you care. We trust that you had a positivie experience in our Emergency Department. If you wish to speak to the department management, you may call the director at [phone]. YOUR FOLLOW UP INSTRUCTIONS ARE FOLLOWS: 1. Do you have a private Doctor? If you do not have a private doctor, please ask for a resource list of physicians or clinics that may be able to assist you with follow up care. 2. The Emergency Physician has interpreted your x-rays. The X-Ray specialist will also review them. If there is a change in the findings, you will be notified in 48 hours when at all possible. 3. A lab test or culture has been done, your results will be reviewed and you will be notified if you need a change in treatment. ADDITIONAL INSTRUCTIONS AND INFORMATION: 1. Your care today has been supervised by a physician who is specially trained in emergency care. Many problems require more than one evaluation for a complete diagnosis and treatment. We recommend that you schedule your follow up appointment as recommended to ensure complete treatment of you illness or injury. If you are unable to obtain follow up care and continue to have a problem, or if your condition worsens, we recommend that you return to the ED. 2. We are not able to safely determine your condition over the phone nor are we able to give sound medical advice over the phone. For these safety reasons, if you call for medical advice we will ask you to come to the ED for further evaluation. 3. If you have any questions regarding these discharge instructions please call the ED at [phone]. SAFETY INFORMATION: In the interest of safety, wellness, and injury prevention; we encourage you to wear your sealbelt, if you smoke; quite smoking, and we encourage family to use a protective helmet for bicycling and other sporting events that present an increased risk for head injury. IF YOUR SYMPTOMS WORSEN OR NEW SYMPTOMS DEVELOP, OR YOU HAVE CONCERNS ABOUT YOUR CONDITION; OR IF YOUR CONDITION WORSENS WHILE YOU ARE WAITING FOR YOUR FOLLOW UP APPOINTMENT; EITHER CONTACT YOUR PRIMARY CARE DOCTOR, THE PHYSICIAN WHOSE NAME AND NUMBER YOU WERE GIVEN, OR RETURN TO THE ED IMMEDIATELY. Attending Signature Attending Signature I have reviewed the PA/GENERAL UTILITY MACHINE OPERATOR's note and plan of care. I was available for consultation as needed during the patient's visit in the emergency department. I agree with the clinical impression, plan, and disposition. (CHANDU DIANE DO) VIVIAN RHODES APRN Sep 04, 2021 21:55 CHANDU DIANE DO Sep 05, 2021 00:12
[2021-09-04] MEDS ORDERED: IV NORMAL SALINE 1,000ML 1,000 ML IV SCH (22:00)
[2021-09-04] MEDS ORDERED: IOHEXOL 300 MG/ML 75 ML VIAL. IV ONE (22:00)
[2021-09-04] MEDS ORDERED: ONDANSETRON PF 4 MG/2 ML VIAL. IVP ONE (22:00)
[2021-09-04 22:42] LABS: BASO # 0.2 x10^3/uL (0.0-0.2); BASO % 1 % (0-3); EOS # 0.2 x10^3/uL (0.0-0.7); EOS % 2 % (0-3); HEMATOCRIT 44.3 % (36.0-47.0); LYMPH # 4.6 x10^3/uL (1.0-4.8); LYMPH % 34 % (24-48); MEAN CORPUSCULAR HEMOGLOBIN 30 pg (25-35); MEAN CORPUSCULAR HGB CONC 34 g/dL (31-37); MEAN CORPUSCULAR VOLUME 89 fL (79-100); MONO % 7 % (0-9); NEUT # 7.4 x10^3uL (1.8-7.7); NEUT % 56 % (31-73); PLATELET COUNT 301 x10^3/uL (140-400); RED BLOOD COUNT 4.99 x10^6/uL (3.50-5.40); RED CELL DISTRIBUTION WIDTH 12.6 % (11.5-14.5); WHITE BLOOD COUNT 13.4 x10^3/uL (4.0-11.0)
[2021-09-04] MEDS ORDERED: KETOROLAC 15 MG/ML VIAL. IVP ONE (22:45)
[2021-09-04] MEDS ORDERED: KETOROLAC 30 MG/ML VIAL. ONE (22:47)
[2021-09-04 22:53] LABS: BACTERIA,URINE 0 /HPF (0-FEW); BILIRUBIN,URINE NEG (NEG); CALCIUM 9.2 mg/dL (8.5-10.1); CLARITY,URINE CLEAR; COLOR,URINE YELLOW; CREATININE 0.8 mg/dL (0.6-1.0); GFR 85.4; GLUCOSE,URINE NEG (NEG); NITRITE,URINE NEG (NEG); POTASSIUM 3.4 mmol/L (3.5-5.1); RBC,URINE OCC /HPF (0-2); SQUAMOUS EPITHELIAL CELL,UR MOD /LPF; UROBILINOGEN,URINE 0.2 mg/dL (0.2 mg/dL); WBC,URINE OCC /HPF (0-4)
[2021-09-04 22:59] LABS: ALBUMIN 4.2 g/dL (3.4-5.0); ALBUMIN/GLOBULIN RATIO 1.1 (1.0-1.7); TOTAL BILIRUBIN 0.2 mg/dL (0.2-1.0)
--- NOTE | 2021-09-04 23:08 | RAD ---
CT abdomen pelvis with contrast dated 09/04/2021. COMPARISON: 06/22/2020. Clinical data indication: Flank pain. TECHNIQUE: Contiguous axial imaging the abdomen pelvis performed after the administration of 75 cc Omnipaque 300 . One or more of the following individualized dose reduction techniques were utilized for this examinat ion: 1. Automated exposure control 2. Adjustment of the mA and/or kV according to patient size 3. Use of iterative reconstruction technique FINDINGS: Limited images of lung bases are clear. Heart size within normal limits. No pleural or pericardial ef fusion. Liver is of diffuse low density suggesting mild fatty infiltration. No apparent mass. Biliary tree no rmal in caliber. The gallbladder is surgically absent. Spleen is normal in size. Pancreas, adrenal glands unremarkable. There is a punctate calcific stone a t the lower pole right kidney. No ureteral stone or hydronephrosis. Gallbladder surgically absent. Unopacified GI tract normal in caliber and contour. No focal bowel wall thickening. No inflammatory s tranding in the mesentery. The appendix is normal in caliber. No ascites or lymphadenopathy. Images of pelvis show nondistended urinary bladder. Uterus and adnexa are unremarkable. No free fluid or pelvic lymphadenopathy. Bone windows show no acute findings. Mild multilevel spondylosis. IMPRESSION: 1. No acute abnormality of abdomen or pelvis. Normal appendix. 2. Right-sided nephrolithiasis, nonobstructive. Electronically signed by: Chandu Cruz MD (09/04/2021 11:06 PM) [facility]
[2021-09-04 23:27] VITALS: BP 132/74
[2021-09-04] MEDS ORDERED: POTASSIUM CHLORIDE 20 MEQ TABLET.ER. PO ONE (23:30)
== END 2021-09-04 23:40 | disposition home or self-care (01) ==
LOC: ER 21:29
DX: E87.6 Hypokalemia (principal); R10.12 Left upper quadrant pain; Z90.49 Acquired absence of other specified parts of digestive tract
CPT/HCPCS: 36415; 74177; 80053; 81001; 81025; 83690; 85025; 96361; 96374; 99285; J1885; J7030; Q9967

== ENCOUNTER → 2021-12-11 | Outpatient (CLI) | payer BC ==
--- NOTE | 2021-12-11 10:31 | RAD ---
XR HAND_RIGHT 3 VIEWS History: Base of the third or fourth digit cyst or sesamoid bone palpated. Comparison: None. Technique: 3 views of the right hand Findings: Osseous mineralization is normal. No acute fracture or dislocaton. No significant degenerative change s. Soft tissues are unremarkable. No soft tissue masses appreciated. Sesamoids are present at the fir st, second and fifth metacarpophalangeal joints. Impression: 1. No acute osseous abnormality in the right hand. No soft tissue mass identified. Electronically signed by: Lakhwinder Argueta MD (12/11/2021 10:29 AM) [id number]
== END ==
LOC: PMG 10:09
PROVIDERS: ATTEND Nurse Practitioner Family
DX: S69.91XA Unspecified injury of right wrist, hand and finger(s), initial encounter (principal); X58.XXXA Exposure to other specified factors, initial encounter; Y93.89 Activity, other specified; Y92.89 Other specified places as the place of occurrence of the external cause; Y99.8 Other external cause status
CPT/HCPCS: 73130